=== PATIENT | male | born 1945 | race Caucasian/White ===

== ENCOUNTER → 2016-12-05 | Outpatient (CLI) | payer MEDICARE, MEDICAID ==
[~2016-12-05] MED LIST: ASPI81TA27 PO; Atorvastatin Calcium PO; CLOP75TA28 PO; ENA2.5T PO; METO50TA7 PO
[2016-12-05 11:13] VITALS: BP_SYST 122; BP_SYST 124; BP_DIAS 86; BP_DIAS 88
== END | disposition home or self-care (01) ==
LOC: CHF HDHVI 10:40
PROVIDERS: ATTEND Internal Medicine Cardiovascular Disease
DX: I50.43 Acute on chronic combined systolic (congestive) and diastolic (congestive) heart failure (principal); I25.738 Atherosclerosis of nonautologous biological coronary artery bypass graft(s) with other forms of angina pectoris; I63.8 Other cerebral infarction; Z98.61 Coronary angioplasty status
CPT/HCPCS: G0166

== ENCOUNTER → 2016-12-06 | Outpatient (CLI) | payer MEDICARE, MEDICAID ==
[2016-12-06 11:30] VITALS: BP_SYST 129; BP_SYST 141; BP_DIAS 89; BP_DIAS 94
== END | disposition home or self-care (01) ==
LOC: CHF HDHVI 10:57
PROVIDERS: ATTEND Internal Medicine Cardiovascular Disease
DX: I50.43 Acute on chronic combined systolic (congestive) and diastolic (congestive) heart failure (principal); I25.738 Atherosclerosis of nonautologous biological coronary artery bypass graft(s) with other forms of angina pectoris; I63.8 Other cerebral infarction; Z98.61 Coronary angioplasty status
CPT/HCPCS: G0166

== ENCOUNTER → 2017-02-06 | Outpatient (CLI) | payer MEDICARE, MEDICAID | END | disposition home or self-care (01) | LOC: Rad HDHVI 13:58 | PROVIDERS: ATTEND Internal Medicine Cardiovascular Disease | DX: M16.0 Bilateral primary osteoarthritis of hip (principal); N40.0 Benign prostatic hyperplasia without lower urinary tract symptoms | CPT/HCPCS: 72131; 73700 ==

== ENCOUNTER → 2017-04-20 | Outpatient (CLI) | payer MEDICARE, MEDICAID ==
[2017-04-20 16:18] LABS: Albumin 3.3 g/dL (3.4-5.0); BUN/Creatinine Ratio 16.6; Bilirubin, Total 0.2 mg/dL (0.2-1.0); Calcium 8.8 mg/dL (8.5-10.1); Potassium 4.1 mmol/L (3.5-5.1)
== END | disposition home or self-care (01) ==
LOC: LAB 10:05
PROVIDERS: ATTEND Internal Medicine Cardiovascular Disease
DX: I10 Essential (primary) hypertension (principal); E78.00 Pure hypercholesterolemia, unspecified
CPT/HCPCS: 36415; 80053; 80061

== ENCOUNTER → 2017-04-26 | Outpatient (CLI) | payer MEDICARE, MEDICAID ==
[2017-04-26 18:07] LABS: BUN/Creatinine Ratio 24.8; Calcium 8.9 mg/dL (8.5-10.1); Potassium 4.6 mmol/L (3.5-5.1)
== END | disposition home or self-care (01) ==
LOC: LAB 10:22
PROVIDERS: ATTEND Internal Medicine Cardiovascular Disease
DX: I10 Essential (primary) hypertension (principal); E11.9 Type 2 diabetes mellitus without complications; R97.20 Elevated prostate specific antigen [PSA]
CPT/HCPCS: 36415; 80048; 82043; 83036; 84153

== ENCOUNTER → 2017-07-10 | Outpatient (CLI) | payer MEDICARE, MEDICAID | END | disposition home or self-care (01) | LOC: Rad HDHVI 08:27 | PROVIDERS: ATTEND Internal Medicine Cardiovascular Disease | DX: I67.2 Cerebral atherosclerosis (principal); I63.9 Cerebral infarction, unspecified | CPT/HCPCS: 70450 ==

== ENCOUNTER 2017-07-12 13:16 | Emergency (ER) | payer MEDICARE, MEDICAID ==
[~2017-07-12] VITALS: Ht 177.8 cm; Wt 68.0 kg
[2017-07-12 13:36] VITALS: BP 133/96
[2017-07-12 20:45] LABS: Basophils # (auto) 0.1 uL; Basophils % (auto) 0.4 % (0.0-2.0); Eosinophils # (auto) 0 uL; Eosinophils % (auto) 0.2 % (0.0-7.0); Hematocrit 41.3 % (41.0-53.0); Lymphocytes # (auto) 0.8 uL; Lymphocytes % (auto) 5.8 % (10.0-50.0); Mean Corpuscular Hemoglobin 31.5 pg (28.0-32.0); Mean Corpuscular Hgb Conc. 33.8 g/dL (32.0-36.0); Mean Corpuscular Volume 93.1 fL (80.0-100.0); Mean Platelet Volume 7.6 fL (6.9-10.8); Monocytes # (auto) 0.9 uL; Monocytes % (auto) 6.6 % (0.0-12.0); Neutrophils # (auto) 12.1 uL; Platelet Count (auto) 433 10^3/uL (140-450); Red Cell Distribution Width 12.7 % (11.8-14.3)
[2017-07-12 21:02] LABS: Albumin 2.9 g/dL (3.4-5.0); BUN/Creatinine Ratio 12.1; Bilirubin, Total 0.6 mg/dL (0.2-1.0); Calcium 8.7 mg/dL (8.5-10.1); Potassium 4.5 mmol/L (3.5-5.1); Total Protein 7.9 g/dL (6.4-8.2)
== END 2017-07-12 22:10 ==
LOC: ER 13:16
DX: R53.1 Weakness (principal); I11.0 Hypertensive heart disease with heart failure; I50.9 Heart failure, unspecified; J44.9 Chronic obstructive pulmonary disease, unspecified; E78.5 Hyperlipidemia, unspecified; Z86.73 Personal history of transient ischemic attack (TIA), and cerebral infarction without residual deficits; F17.210 Nicotine dependence, cigarettes, uncomplicated; F12.10 Cannabis abuse, uncomplicated; F15.10 Other stimulant abuse, uncomplicated
CPT/HCPCS: 36415; 80053; 85025; 93005

== ENCOUNTER → 2017-07-25 | Outpatient (CLI) | payer MEDICARE, MEDICAID | END | disposition home or self-care (01) | LOC: Rad HDHVI 11:03 | PROVIDERS: ATTEND Internal Medicine Cardiovascular Disease | DX: R07.89 Other chest pain (principal); R06.02 Shortness of breath | CPT/HCPCS: 93306 ==

== ENCOUNTER → 2017-07-26 | Outpatient (CLI) | payer MEDICARE, MEDICAID | END | disposition home or self-care (01) | LOC: Rad HDHVI 11:58 | PROVIDERS: ATTEND Internal Medicine Cardiovascular Disease | DX: R07.89 Other chest pain (principal); R06.02 Shortness of breath; J44.9 Chronic obstructive pulmonary disease, unspecified | CPT/HCPCS: 93880 ==

== ENCOUNTER → 2017-08-17 | Outpatient (CLI) | payer MEDICARE, MEDICAID ==
[~2017-08-17] MED LIST changes: +IOHEXOL 350 MG/ML 100ML IJ ONE
[2017-08-17 09:15] VITALS: BP 143/86
[2017-08-17 09:40] VITALS: BP 149/112
== END | disposition home or self-care (01) ==
LOC: Rad HDHVI 09:04
PROVIDERS: ATTEND Internal Medicine Cardiovascular Disease
DX: I74.09 Other arterial embolism and thrombosis of abdominal aorta (principal); N40.0 Benign prostatic hyperplasia without lower urinary tract symptoms; K57.30 Diverticulosis of large intestine without perforation or abscess without bleeding; K42.9 Umbilical hernia without obstruction or gangrene
CPT/HCPCS: 75635; 82565; 96374; G0463; Q9967

== ENCOUNTER → 2017-09-01 | Outpatient (CLI) | payer MEDICARE, MEDICAID ==
[~2017-09-01] MED LIST changes: -IOHEXOL 350 MG/ML 100ML IJ ONE; +SODIUM CHLORIDE 0.9% 500 ML IV ONE
[2017-09-01 10:51] LABS: Basophils # (auto) 0.1 uL; Basophils % (auto) 0.8 % (0.0-2.0); Eosinophils # (auto) 0.4 uL; Eosinophils % (auto) 3.7 % (0.0-7.0); Hematocrit 42.7 % (41.0-53.0); Hemoglobin 14.2 g/dL (13.5-17.5); Lymphocytes # (auto) 1.5 uL; Lymphocytes % (auto) 14.7 % (10.0-50.0); Mean Corpuscular Hemoglobin 31.4 pg (28.0-32.0); Mean Corpuscular Hgb Conc. 33.3 g/dL (32.0-36.0); Mean Corpuscular Volume 94.4 fL (80.0-100.0); Mean Platelet Volume 7.9 fL (6.9-10.8); Monocytes # (auto) 0.6 uL; Monocytes % (auto) 5.7 % (0.0-12.0); Neutrophils # (auto) 7.5 uL; Neutrophils % (auto) 75.1 % (37.0-80.0); Nucleated Red Blood Cells % 0.1 %; Platelet Count (auto) 283 10^3/uL (140-450); Red Cell Distribution Width 13.9 % (11.8-14.3)
[2017-09-01 11:13] LABS: Albumin 3.2 g/dL (3.4-5.0); BUN/Creatinine Ratio 15.3; Bilirubin, Total 0.6 mg/dL (0.2-1.0); Calcium 8.5 mg/dL (8.5-10.1); Magnesium 2.1 mg/dL (1.6-2.6); Potassium 4.6 mmol/L (3.5-5.1); Total Protein 7.3 g/dL (6.4-8.2)
[2017-09-01 13:30] VITALS: BP 105/78
== END | disposition home or self-care (01) ==
LOC: CHF HDHVI 09:55
PROVIDERS: ATTEND Internal Medicine Cardiovascular Disease
DX: I70.0 Atherosclerosis of aorta (principal); R91.8 Other nonspecific abnormal finding of lung field; J98.11 Atelectasis; I10 Essential (primary) hypertension; D64.9 Anemia, unspecified; E11.9 Type 2 diabetes mellitus without complications; E83.42 Hypomagnesemia
CPT/HCPCS: 36415; 71020; 80053; 82962; 83036; 83735; 85025; G0463

== ENCOUNTER → 2017-09-20 | Outpatient (CLI) | payer MEDICARE, MEDICAID ==
[~2017-09-20] MED LIST changes: -SODIUM CHLORIDE 0.9% 500 ML IV ONE
== END | disposition home or self-care (01) ==
LOC: Rad HDHVI 09:29
PROVIDERS: ATTEND Internal Medicine Cardiovascular Disease
DX: J44.9 Chronic obstructive pulmonary disease, unspecified (principal)
CPT/HCPCS: 71020

== ENCOUNTER → 2017-11-27 | Outpatient (CLI) | payer MEDICARE ==
[~2017-11-27] MED LIST changes: +METOPROLOL TARTRATE 25 MG TAB ONE; +METOPROLOL TARTRATE 25 MG TAB PO ONE
[2017-11-27 09:15] VITALS: BP 173/104
[2017-11-27 10:00] VITALS: BP 138/111
[2017-11-27 12:43] LABS: Basophils # (auto) 0.1 uL; Basophils % (auto) 0.6 % (0.0-2.0); Eosinophils # (auto) 0.3 uL; Eosinophils % (auto) 3.3 % (0.0-7.0); Hematocrit 41.3 % (41.0-53.0); Hemoglobin 13.8 g/dL (13.5-17.5); Lymphocytes # (auto) 1.5 uL; Lymphocytes % (auto) 17.7 % (10.0-50.0); Mean Corpuscular Hemoglobin 31.4 pg (28.0-32.0); Mean Corpuscular Hgb Conc. 33.5 g/dL (32.0-36.0); Mean Corpuscular Volume 93.8 fL (80.0-100.0); Monocytes # (auto) 0.5 uL; Neutrophils # (auto) 6.1 uL; Neutrophils % (auto) 72.4 % (37.0-80.0); Nucleated Red Blood Cells % 0.2 %; Platelet Count (auto) 251 10^3/uL (140-450); White Blood Cell 8.5 10^3/uL (4.4-10.8)
[2017-11-27 12:50] LABS: BUN/Creatinine Ratio 11.4; Calcium 8.3 mg/dL (8.5-10.1); Potassium 4.3 mmol/L (3.5-5.1)
[2017-11-27 12:53] LABS: INR 0.9 (0.9-1.15); Partial Thromboplastin Time 25.2 sec (22.64-33.71); Prothrombin Time 9.8 sec (9.37-12.3)
== END | disposition home or self-care (01) ==
LOC: Rad HDHVI 09:08
PROVIDERS: ATTEND Internal Medicine Cardiovascular Disease
DX: Z01.818 Encounter for other preprocedural examination (principal); J98.11 Atelectasis; I70.0 Atherosclerosis of aorta; I10 Essential (primary) hypertension; D64.9 Anemia, unspecified; R79.1 Abnormal coagulation profile
CPT/HCPCS: 36415; 71046; 80048; 85025; 85610; 85730; 93005; G0463

== ENCOUNTER 2017-11-30 07:06 | Inpatient (IN) | payer MEDICAID, MEDICARE ==
[~2017-11-30] VITALS: Ht 170.2 cm; Wt 65.8 kg
[~2017-11-30 07:06] MED LIST changes: -METOPROLOL TARTRATE 25 MG TAB ONE; -METOPROLOL TARTRATE 25 MG TAB PO ONE
[2017-11-30] MEDS ORDERED: IOHEXOL 350 MG/ML 100ML IJ ONE ×2 (07:15→08:26)
[2017-11-30] MEDS ORDERED: LIDOCAINE 2%HCL (LOCAL ANESTH.) INJ 20ML MDV ONE (07:15)
[2017-11-30] MEDS ORDERED: ANGIOMAX 250 MG VIAL IV ONE (07:44)
[2017-11-30] MEDS ORDERED: MIDAZOLAM HCL 1MG/1ML-2 ML VIAL ONE (07:45)
[2017-11-30] MEDS ORDERED: SODIUM CHL 0.9% 50 ML ONE (07:45)
[2017-11-30] MEDS ORDERED: fentaNYL CITRATE 100 MCG/2 ML VL ONE (07:45)
[2017-11-30] MEDS ORDERED: ZOLPIDEM TARTRATE 5 MG TAB PO PRN (10:30)
[2017-11-30] MEDS ORDERED: ONDANSETRON HCL 4 MG/2 ML VIAL IV PRN (10:30)
[2017-11-30] MEDS ORDERED: HYDROcodone-ACET 5/325MG TAB PO PRN (10:30)
[2017-11-30] MEDS ORDERED: ACETAMINOPHEN 500 MG TAB PO PRN (10:30)
[2017-11-30] MEDS ORDERED: METOPROLOL SUCCINATE XL 50 MG TAB PO SCH (11:00)
[2017-11-30] MEDS ORDERED: CLOPIDOGREL BISULFATE 75 MG TAB PO ONE (11:00)
[2017-11-30] MEDS ORDERED: ENALAPRIL MALEATE 2.5 MG TAB PO ONE (11:00)
[2017-11-30] MEDS ORDERED: ASPirin-EC 81 mg tab PO ONE (11:00)
[2017-11-30] MEDS: SODIUM CHLOR 0.9% PF (SALINE LOCK) 10ML VIAL IV SCH ×2 (11:12→22:00)
[2017-11-30 13:00] VITALS: BP 131/85
[2017-11-30 17:00] VITALS: BP 141/92
[2017-11-30 22:00] VITALS: BP 102/71
[2017-11-30] MEDS ORDERED: ATORVASTATIN 20 MG TAB PO SCH (22:00)
[2017-11-30] MEDS ORDERED: ATORVASTATIN CALCIUM 20 MG PO SCH (22:00)
[2017-12-01 05:20] VITALS: BP 129/95
[2017-12-01] MEDS: SODIUM CHLOR 0.9% PF (SALINE LOCK) 10ML VIAL IV SCH ×2 (06:00→13:44)
[2017-12-01 08:20] VITALS: BP 104/77
[2017-12-01] MEDS ORDERED: METOPROLOL SUCCINATE XL 50 MG TAB PO SCH (10:00)
[2017-12-01] MEDS ORDERED: CLOPIDOGREL BISULFATE 75 MG TAB PO SCH (10:00)
[2017-12-01] MEDS ORDERED: ENALAPRIL MALEATE 2.5 MG TAB PO SCH (10:00)
[2017-12-01] MEDS ORDERED: ASPirin-EC 81 mg tab PO SCH (10:00)
[2017-12-01 11:40] VITALS: BP 151/88
[2017-12-01 14:34] VITALS: BP 106/70
== END 2017-12-01 15:50 | disposition home or self-care (01) | DRG 253 ==
LOC: CATH 07:06 → WEST WING 07:07
PROVIDERS: ADMIT Internal Medicine Cardiovascular Disease; ATTEND Internal Medicine Cardiovascular Disease
PROC: 047D34Z Dilation of Left Common Iliac Artery with Drug-eluting Intraluminal Device, Percutaneous Approach (ICD-10-PCS; principal; 2017-11-30)
PROC: B41D1ZZ Fluoroscopy of Aorta and Bilateral Lower Extremity Arteries using Low Osmolar Contrast (ICD-10-PCS; 2017-11-30)
DX: I70.211 Atherosclerosis of native arteries of extremities with intermittent claudication, right leg (principal); I70.92 Chronic total occlusion of artery of the extremities; I50.9 Heart failure, unspecified; J44.9 Chronic obstructive pulmonary disease, unspecified; I11.0 Hypertensive heart disease with heart failure; I70.201 Unspecified atherosclerosis of native arteries of extremities, right leg; E78.5 Hyperlipidemia, unspecified; Z72.0 Tobacco use; Z71.6 Tobacco abuse counseling; I25.2 Old myocardial infarction; Z86.73 Personal history of transient ischemic attack (TIA), and cerebral infarction without residual deficits
CPT/HCPCS: 36415; 37221; 71046; 75716; 80048; 85025; 85610; 85730; 93005; 99152; C1769; G0463; J2250

== ENCOUNTER → 2018-02-23 | Outpatient (CLI) | payer MEDICARE ==
[~2018-02-23] VITALS: Ht 30.5 cm; Wt 64.0 kg
[~2018-02-23] MED LIST changes: +SODIUM CHLORIDE 0.9% 500 ML IV ONE; +cefTRIAXone 1GM/10ml IVPUSH 10 ML IV ONE
[2018-02-23 12:30] VITALS: BP 96/66
[2018-02-23 13:26] VITALS: BP 104/77
[2018-02-23 13:50] VITALS: BP 98/71
[2018-02-23 16:06] LABS: Anion Gap 8 (5-15); BUN/Creatinine Ratio 20.6; Blood Urea Nitrogen 34 mg/dL (7-18); Calcium 8.9 mg/dL (8.5-10.1); Carbon Dioxide 25 mmol/L (21-32); Chloride 107 mmol/L (98-107); GFR African American 53 mL/min; GFR Non-African American 44 mL/min; Glucose 145 mg/dL (74-106); Sodium 140 mmol/L (136-145)
== END | disposition home or self-care (01) ==
LOC: CHF HDHVI 12:42
PROVIDERS: ATTEND Internal Medicine Cardiovascular Disease
DX: I11.0 Hypertensive heart disease with heart failure (principal); I50.23 Acute on chronic systolic (congestive) heart failure; I20.9 Angina pectoris, unspecified; E86.0 Dehydration; R07.9 Chest pain, unspecified; E78.5 Hyperlipidemia, unspecified; J44.9 Chronic obstructive pulmonary disease, unspecified
CPT/HCPCS: 36415; 80048; 83880; 84484; 96361; 96374; G0463; J7040; 96360; 96375

== ENCOUNTER → 2018-03-12 | Outpatient (CLI) | payer MEDICARE ==
[~2018-03-12] MED LIST changes: -SODIUM CHLORIDE 0.9% 500 ML IV ONE; -cefTRIAXone 1GM/10ml IVPUSH 10 ML IV ONE
== END | disposition home or self-care (01) ==
LOC: Rad HDHVI 15:23
PROVIDERS: ATTEND Internal Medicine Cardiovascular Disease
DX: R06.02 Shortness of breath (principal); E78.5 Hyperlipidemia, unspecified; I11.0 Hypertensive heart disease with heart failure; I50.9 Heart failure, unspecified; J44.9 Chronic obstructive pulmonary disease, unspecified
CPT/HCPCS: 71046

== ENCOUNTER → 2018-05-16 | Outpatient (CLI) | payer MEDICARE ==
[~2018-05-16] MED LIST changes: +MET5XLT PO; -METO50TA7 PO
[2018-05-16 11:20] VITALS: BP 100/68
[2018-05-16 12:00] VITALS: BP 102/64
== END | disposition home or self-care (01) ==
LOC: CHF HDHVI 10:59
PROVIDERS: ATTEND Internal Medicine
DX: I10 Essential (primary) hypertension (principal); R06.02 Shortness of breath
CPT/HCPCS: 94618; G0463

== ENCOUNTER 2018-05-17 14:37 | Emergency (ER) | payer MEDICARE ==
[~2018-05-17] VITALS: Ht 172.7 cm; Wt 62.1 kg
[2018-05-17] MEDS ORDERED: SODIUM CHLORIDE 0.9% 1,000 ML IV ONE (14:43)
[2018-05-17] MEDS ORDERED: cefTRIAXone 1GM/10ml IVPUSH 10 ML IV ONE (15:00)
[2018-05-17 15:37] LABS: Basophils # (auto) 0.1 uL; Basophils % (auto) 0.3 % (0.0-2.0); Eosinophils # (auto) 0 uL; Hematocrit 42.2 % (41.0-53.0); Hemoglobin 13.9 g/dL (13.5-17.5); Lymphocytes # (auto) 0.5 uL; Lymphocytes % (auto) 2.8 % (10.0-50.0); Mean Corpuscular Hemoglobin 30.8 pg (28.0-32.0); Mean Corpuscular Volume 93.3 fL (80.0-100.0); Monocytes # (auto) 0.6 uL; Monocytes % (auto) 3.6 % (0.0-12.0); Neutrophils # (auto) 16.7 uL; Neutrophils % (auto) 93.3 % (37.0-80.0); Platelet Count (auto) 201 10^3/uL (140-450); Red Blood Cells 4.52 10^6/uL (4.5-5.90); Red Cell Distribution Width 13.1 % (11.8-14.3); White Blood Cell 17.9 10^3/uL (4.4-10.8)
[2018-05-17 15:50] LABS: Partial Thromboplastin Time 24.6 sec (23.78-33.04); Prothrombin Time 10.7 sec (9.27-12.13)
[2018-05-17 15:59] LABS: Albumin 2.2 g/dL (3.4-5.0); BUN/Creatinine Ratio 13.7; Calcium 7.3 mg/dL (8.5-10.1); Potassium 4.2 mmol/L (3.5-5.1); Total Protein 5.7 g/dL (6.4-8.2)
[2018-05-17] MEDS ORDERED: AZITHROMYCIN 500MG/ 250ML 250 ML IV ONE (16:15)
[2018-05-17 17:18] VITALS: BP 156/143
[2018-05-17 17:19] LABS: Urine Bacteria NONE SEEN /hpf (None Seen); Urine Blood Negative /uL (Negative); Urine Specific Gravity 1.027 (1.001-1.035); Urine WBC 2 /hpf (0 - 3)
== END 2018-05-17 18:23 | disposition left against medical advice (07) ==
LOC: EDBD 14:37 → ER 14:37
DX: J18.9 Pneumonia, unspecified organism (principal); I11.0 Hypertensive heart disease with heart failure; I50.9 Heart failure, unspecified; I25.10 Atherosclerotic heart disease of native coronary artery without angina pectoris; E78.00 Pure hypercholesterolemia, unspecified; J44.9 Chronic obstructive pulmonary disease, unspecified; F17.210 Nicotine dependence, cigarettes, uncomplicated; F12.10 Cannabis abuse, uncomplicated
CPT/HCPCS: 36415; 71045; 80053; 81001; 83605; 83880; 84484; 85025; 85610; 85730; 87040; 93005; 96365; 96375; 99285; J0456; J0696; J7030

== ENCOUNTER → 2018-11-02 | Outpatient (CLI) | payer MEDICARE ==
[~2018-11-02] MED LIST changes: +IOHEXOL 350 MG/ML 100ML IJ ONE; +SODIUM CHLORIDE 0.9% 500 ML IV ONE
[2018-11-02 11:20] VITALS: BP 147/94
--- NOTE | 2018-11-02 11:20 | NUR ---
IV insertion IV access obtained, via clean sterile technique by inserting 22 gauge catheter at RFA after 1 attempt(s). IV secured properly. No trauma to site. Patient tolerated procedure well.
--- NOTE | 2018-11-02 12:38 | NUR ---
IV removal IV DC'd with sterile technique, catheter fully intact. Pressure dressing applied to site. Patient tolerated procedure well.
[2018-11-02 12:40] VITALS: BP 140/80
--- NOTE | 2018-11-02 12:40 | NUR ---
[facility] Discharge Instructions See e-MAR for any mediations given with this visit. Patient education given on disease process. Patient verbalized understanding. Previous labs reviewed. Patient discharged in stable condition with after care instructions and follow up appointment. NOTE NS [id number] ADMIN BY THANIA DYSON
== END | disposition home or self-care (01) ==
LOC: Rad HDHVI 10:59
PROVIDERS: ATTEND Internal Medicine Cardiovascular Disease
DX: R07.9 Chest pain, unspecified (principal); I25.10 Atherosclerotic heart disease of native coronary artery without angina pectoris; J44.9 Chronic obstructive pulmonary disease, unspecified; E78.00 Pure hypercholesterolemia, unspecified; R42 Dizziness and giddiness; E78.5 Hyperlipidemia, unspecified; E86.0 Dehydration; I25.2 Old myocardial infarction; E11.51 Type 2 diabetes mellitus with diabetic peripheral angiopathy without gangrene; M81.0 Age-related osteoporosis without current pathological fracture; E11.22 Type 2 diabetes mellitus with diabetic chronic kidney disease; I13.0 Hypertensive heart and chronic kidney disease with heart failure and stage 1 through stage 4 chronic kidney disease, or unspecified chronic kidney disease; N18.3 Chronic kidney disease, stage 3 (moderate); I50.42 Chronic combined systolic (congestive) and diastolic (congestive) heart failure; F12.11 Cannabis abuse, in remission; I70.92 Chronic total occlusion of artery of the extremities; K57.90 Diverticulosis of intestine, part unspecified, without perforation or abscess without bleeding; Z95.1 Presence of aortocoronary bypass graft; Z87.891 Personal history of nicotine dependence; Z79.899 Other long term (current) drug therapy; Z79.82 Long term (current) use of aspirin; Z95.0 Presence of cardiac pacemaker; Z86.73 Personal history of transient ischemic attack (TIA), and cerebral infarction without residual deficits; Z79.02 Long term (current) use of antithrombotics/antiplatelets
CPT/HCPCS: 71260; 82565; 96360; G0463; J7040; Q9967

== ENCOUNTER → 2019-03-11 | Outpatient (CLI) | payer MEDICARE ==
[~2019-03-11] MED LIST changes: -IOHEXOL 350 MG/ML 100ML IJ ONE; -SODIUM CHLORIDE 0.9% 500 ML IV ONE
== END | disposition home or self-care (01) ==
LOC: LAB 12:17
PROVIDERS: ATTEND Internal Medicine Cardiovascular Disease
DX: R94.4 Abnormal results of kidney function studies (principal); Z79.899 Other long term (current) drug therapy
CPT/HCPCS: 36415; 82565; 82962

== ENCOUNTER → 2019-03-15 | Outpatient (CLI) | payer MEDICARE ==
[~2019-03-15] MED LIST changes: +READI-CAT 2 (BARIUM SULF)(VANILLA SMOOTHIE) 450ML ONE; +SODIUM CHLORIDE 0.9% 500 ML IV ONE
[2019-03-15 10:00] VITALS: BP 79/44
--- NOTE | 2019-03-15 10:05 | NUR ---
IV insertion IV access obtained, via clean sterile technique by inserting 22 gauge catheter at RAC after 1 attempt(s). IV secured properly. No trauma to site. Patient tolerated procedure well.
--- NOTE | 2019-03-15 12:00 | NUR ---
IV removal IV DC'd with sterile technique, catheter fully intact. Pressure dressing applied to site. Patient tolerated procedure well.
[2019-03-15 12:05] VITALS: BP 126/73
--- NOTE | 2019-03-15 12:05 | NUR ---
[facility] Discharge Instructions See e-MAR for any mediations given with this visit. Patient education given on disease process. Patient verbalized understanding. Previous labs reviewed. Patient discharged in stable condition with after care instructions and follow up appointment. NOTE NS [id number], [id number] ADMIN BY THANIA DYSON
== END | disposition home or self-care (01) ==
LOC: Rad HDHVI 09:42
PROVIDERS: ATTEND Internal Medicine Cardiovascular Disease
DX: J98.11 Atelectasis (principal); I70.0 Atherosclerosis of aorta; R91.8 Other nonspecific abnormal finding of lung field; K57.30 Diverticulosis of large intestine without perforation or abscess without bleeding; N32.89 Other specified disorders of bladder; R63.4 Abnormal weight loss; R94.4 Abnormal results of kidney function studies; Z79.899 Other long term (current) drug therapy
CPT/HCPCS: 36415; 71250; 74176; 82565; G0463; J7040; 96360

== ENCOUNTER 2019-06-23 19:15 | Inpatient (IN) | payer MEDICARE, OTHER ==
[~2019-06-23] VITALS: Ht 170.2 cm; Wt 60.4 kg
[~2019-06-23 19:15] MED LIST changes: +ASPI-404 PO; -ASPI81TA27 PO; -ENA2.5T PO; +ENAL2.5T2 PO; -MET5XLT PO; +METO-6 PO; -READI-CAT 2 (BARIUM SULF)(VANILLA SMOOTHIE) 450ML ONE; -SODIUM CHLORIDE 0.9% 500 ML IV ONE
[2019-06-23] MEDS ORDERED: SODIUM CHLORIDE 0.9% 1,000 ML IV ONE (20:30)
[2019-06-23 20:36] LABS: Basophils # (auto) 0.1 uL; Basophils % (auto) 0.8 % (0.0-2.0); Eosinophils # (auto) 0.2 uL; Eosinophils % (auto) 1.8 % (0.0-7.0); Hematocrit 48.2 % (41.0-53.0); Hemoglobin 16.1 g/dL (13.5-17.5); Lymphocytes % (auto) 11.7 % (10.0-50.0); Mean Corpuscular Hgb Conc. 33.4 g/dL (32.0-36.0); Mean Corpuscular Volume 95.7 fL (80.0-100.0); Monocytes # (auto) 0.6 uL; Monocytes % (auto) 6.7 % (0.0-12.0); Neutrophils # (auto) 6.7 uL; Platelet Count (auto) 276 10^3/uL (140-450); Red Blood Cells 5.04 10^6/uL (4.5-5.90); Red Cell Distribution Width 12.5 % (11.8-14.3); White Blood Cell 8.5 10^3/uL (4.4-10.8)
[2019-06-23] MEDS ORDERED: IPRATROPIUM BROM 0.5 MG/2.5ML INH SOL NEB ONE (20:45)
[2019-06-23] MEDS ORDERED: ALBUTEROL SULF 2.5 MG/0.5ML(0.5%) NEB SOLN NEB ONE (20:45)
[2019-06-23] MEDS ORDERED: methylPREDNISolone SOD SUCC 125 MG/2 ML VL IV ONE (20:45)
[2019-06-23 20:50] LABS: INR 0.93 (0.9-1.15); Partial Thromboplastin Time 22.2 sec (23.64-32.05)
[2019-06-23 20:52] LABS: Albumin 3.7 g/dL (3.4-5.0); Anion Gap 7 (5-15); Blood Urea Nitrogen 27 mg/dL (7-18); Calcium 8.9 mg/dL (8.5-10.1); Carbon Dioxide 31 mmol/L (21-32); Chloride 101 mmol/L (98-107); Glucose 331 mg/dL (74-106); Potassium 3.9 mmol/L (3.5-5.1); Sodium 139 mmol/L (136-145)
[2019-06-23 20:58] LABS: Alanine Aminotransferase 28 U/L (16-61); Alkaline Phosphatase 114 U/L (45-117); Aspartate Aminotransferase 16 U/L (15-37); BUN/Creatinine Ratio 14.1; Bilirubin, Total 0.5 mg/dL (0.2-1.0); GFR African American 45 mL/min; GFR Non-African American 37 mL/min; Total Protein 7.1 g/dL (6.4-8.2)
[2019-06-23] MEDS ORDERED: MORPHINE SULF INJ 2 MG/ML SYRINGE 1ML IV PRN (23:30)
[2019-06-23] MEDS ORDERED: InsuLIN REG 1unit/0.01ml Soln (100units/ml) SC ONE (23:30)
[2019-06-23] MEDS ORDERED: DEXTROSE (50%) 50ML SYRG IV PRN (23:30)
[2019-06-23] MEDS ORDERED: NITROGLYCERIN 0.4 MG SL TAB SL PRN (23:30)
[2019-06-24] MEDS: InsuLIN REG 1unit/0.01ml Soln (100units/ml) SC SCH ×7 (00:03→23:35)
[2019-06-24] MEDS: ACCU-CHEK COMFORT CURVE STRIP VI SCH ×7 (00:03→23:34)
[2019-06-24] MEDS: IPRATROPIUM BROM 0.5 MG/2.5ML INH SOL NEB SCH ×3 (00:24→19:02)
--- NOTE | 2019-06-24 00:40 | NUR ---
Telemetry admit from ER DEVONTE ODOM Calvin admitted to Telemetry unit after SBAR received. Patient oriented to Shanon eller RN, unit, room, bed, and unit policies regarding patient care and visiting hours. Patient now on continuous telemetry monitoring, tele box # 76 and telemetry reading on arrival to unit is SR 95,first degree heart block. Patient placed on bedside oxygen, weighed by bed scale and encouraged to call if they need something. All questions and concerns addressed, patient verbalized understanding. Note: Came pert stretcher awake alert oriented x 4, not in respiratory distress,placed in the bed comfortably, vital signs checked.
[2019-06-24 00:49] VITALS: BP 146/90
--- NOTE | 2019-06-24 00:59 | NUR ---
Went down to smoke, explained that signing the AMA to smoke is hospital has no liability if something happened and he downstair while he smoking and said yes.Offered Nicotine patched, patient just ignore the R.n.
[2019-06-24 02:33] LABS: Alcohol, Urine < 3.0 mg/dL (0-5); Amphetamine Screen, Urine POSITIVE (NEGATIVE); Barbiturate Scree,Urine NEGATIVE (NEGATIVE); Benzodiazephine Screen, Urine NEGATIVE (NEGATIVE); Cannabinoid Screen, Urine NEGATIVE (NEGATIVE); Cocaine Screen, Urine NEGATIVE (NEGATIVE); Phencyclidine Screen, Urine NEGATIVE (NEGATIVE)
[2019-06-24 02:40] LABS: Opiate Scree,Urine NEGATIVE (NEGATIVE)
[2019-06-24 04:30] VITALS: BP 121/85
--- NOTE | 2019-06-24 07:20 | NUR ---
Open Shift Note Received report on patient, awake and sitting up in bed. Patient shows no signs of distress at this time. Patient states chronic neck pain. Discussed pain management with patient along with POC. Educated patient importance of smoking cessation, patient states "What difference will it make now?". Reinforcement needed. Bed in lowest locked position, side rails up x2 and call light within reach. Will continue to monitor.
--- NOTE | 2019-06-24 07:36 | NUR ---
Report given to Esa Berry, patient need pain med, to tell Neeta
[2019-06-24 09:08] VITALS: BP 125/86
[2019-06-24] MEDS: METOPROLOL TARTRATE 25 MG TAB PO SCH (10:13)
[2019-06-24] MEDS: ATORVASTATIN 20 MG TAB PO SCH (10:14)
[2019-06-24] MEDS: ASPirin 81 mg TAB PO SCH (10:14)
[2019-06-24] MEDS: MONTELUKAST SODIUM 10 MG TAB PO SCH (10:14)
[2019-06-24] MEDS: CLOPIDOGREL BISULFATE 75 MG TAB PO SCH (10:15)
[2019-06-24 13:26] VITALS: BP 151/109
[2019-06-24] MEDS ORDERED: FUROSEMIDE 40 MG/4 ML VIAL IV ONE (14:00)
[2019-06-24] MEDS ORDERED: POTASSIUM CHL 20 Meq TABLET PO ONE (14:00)
[2019-06-24 16:53] VITALS: BP 117/89
--- NOTE | 2019-06-24 18:53 | NUR ---
Closing Note Patient sitting up in bed, shows no signs of distress at this time. Bed in lowest locked position, side rails up x2 and call light within reach.
--- NOTE | 2019-06-24 20:00 | NUR ---
Opening Shift Note Assumed care of patient, awake and alert. No S/S of distress/SOB or pain. Instructed on POC and to call for assist PRN, will continue to monitor for changes Q1hr and PRN.
[2019-06-24] MEDS: HYDROcodone-ACET 10/325MG TAB PO PRN (21:31)
[2019-06-24] MEDS: INSULIN LANTUS (GLARGINE) 1 /0.01ml (100units/ml) SC SCH (21:47)
[2019-06-24 21:57] VITALS: BP 93/75
--- NOTE | 2019-06-25 | NUR ---
Respiratory note: PT REFUSED SCHEDULED MED NEB TX STATING HE FELT OKAY AND WANTED TO SLEEP. NO SIGNS OF ANY RESPIRATORY DISTRESS NOTED. WILL CONTINUE TO MONITOR PT.
--- NOTE | 2019-06-25 00:40 | NUR ---
RT AT BEDSIDE FOR SCHEDULED BREATHING TREATMENT.
[2019-06-25] MEDS: ACCU-CHEK COMFORT CURVE STRIP VI SCH ×5 (03:42→20:02)
[2019-06-25] MEDS: InsuLIN REG 1unit/0.01ml Soln (100units/ml) SC SCH ×5 (03:42→20:02)
[2019-06-25] MEDS: HYDROcodone-ACET 10/325MG TAB PO PRN (04:08)
[2019-06-25 05:00] VITALS: BP 95/78
--- NOTE | 2019-06-25 07:09 | NUR ---
Report given to Esa Berry ,patient is resting no distress.
[2019-06-25] MEDS: IPRATROPIUM BROM 0.5 MG/2.5ML INH SOL NEB SCH ×4 (07:23→19:15)
--- NOTE | 2019-06-25 08:41 | NUR ---
Opening Note Received report on the patient. Awake and lying in bed, but he was inquisitive in regards to plan of care and nursing actions. Patient shows no signs of distress at this time. Discussed plan of care with the patient and answered all questions. Bed is in the lowest position, side rails up X2, and call light is within reach. Will continue to monitor.
[2019-06-25 09:27] VITALS: BP 104/70
[2019-06-25] MEDS: MONTELUKAST SODIUM 10 MG TAB PO SCH (09:49)
[2019-06-25] MEDS: ASPirin 81 mg TAB PO SCH (09:49)
[2019-06-25] MEDS: CLOPIDOGREL BISULFATE 75 MG TAB PO SCH (09:49)
[2019-06-25] MEDS: ATORVASTATIN 20 MG TAB PO SCH (09:49)
[2019-06-25] MEDS: METOPROLOL TARTRATE 25 MG TAB PO SCH (09:50)
--- NOTE | 2019-06-25 09:53 | NUR ---
NC Refusal Patient refuses to wear NC ordered with 2L O2. O2 sat is 93% and is not under distress at this time.
--- NOTE | 2019-06-25 12:42 | NUR ---
Hypoglycemic Episode Patient was found sitting up in bed slumped over. Patient was "hot", sweaty, and disoriented. VS were normal. Blood glucose was taken and was 74. Patient was given 4 boxes of orange juice and 1 package of melissa crackers. Blood glucose was retaken after 30 minutes and was 97. Patient is now alert and oriented, sitting in bed eating lunch. Will continue to monitor.
[2019-06-25 13:00] VITALS: BP 140/109
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
[2019-06-25 17:19] VITALS: BP 113/76
--- NOTE | 2019-06-25 19:05 | NUR ---
OPENING NOTE- NOC SHIFT PATIENT IS ALERT AND ORIENTED X4. PATIENT IS IN BED WEARING HIS PERSONAL CLOTHES. BED IS LOCKED IN LOWEST POSITION, BED RAILS UP X2 AND HEAD OF BED IS UP >30 DEGREES FOR SAFETY PRECAUTIONS. DISCUSSED POC WITH PATIENT AND INSTRUCTED PATIENT TO CALL PRN; PATIENT VERBALIZED UNDERSTANDING. WILL CONTINUE T0 MONITOR Q1H AND PRN. PATIENT REFUSED GOWN THAT WAS OFFERED; GOWN LEFT AT BEDSIDE.
--- NOTE | 2019-06-25 19:35 | NUR ---
PATIENT OFF FLOOR TO SMOKE PATIENT HAS SIGNED AMA IN HARD CHART. EDUCATED PATIENT REGARDING HARM RISKS OF SMOKING; PATIENT STATED "I'M 73 YEARS OLD I DON'T CARE TO QUIT NOW." PATIENT IS AWARE OF HOSPITAL AMA SMOKE POLICY.
--- NOTE | 2019-06-25 20:00 | NUR ---
PATIENT RETURNED TO ROOM FROM [place] PATIENT STATES THAT HE SMOKES ABOUT FIVE CIGARETTES A DAY.
[2019-06-25] MEDS: INSULIN LANTUS (GLARGINE) 1 /0.01ml (100units/ml) SC SCH (21:37)
--- NOTE | 2019-06-25 21:38 | NUR ---
PATIENT REFUSED LANTUS STATES THAT HE THINKS HE WILL HAVE ENOUGH WITH THE REGULAR INSULIN PREVIOUSLY ADMINISTERED. PATIENT STATES THAT HE HAD A HYPOGLYCEMIC EPISODE AND THAT IT MADE HIM FEEL "TERRIBLY WEAK."
[2019-06-25 22:00] VITALS: BP 96/68
--- NOTE | 2019-06-25 22:08 | NUR ---
BLOOD PRESSURE 155/89 PATIENT REPORTS HEADACHE 05/11 STATES THAT HE TAKES BENAZEPRIL AT HOME . BID BUT DOES NOT KNOW THE DOSAGE. Addendum: 06/25/19 at 2214 by Leona Bethea RN PLEASE DISREGARD THIS NOTE, INTENDED FOR A DIFFERENT PATIENT.
[2019-06-26] MEDS: ACCU-CHEK COMFORT CURVE STRIP VI SCH ×6 (00:05→20:44)
--- NOTE | 2019-06-26 00:40 | NUR ---
RT AT BEDSIDE FOR SCHEDULED BREATHING TREATMENT.
[2019-06-26] MEDS: IPRATROPIUM BROM 0.5 MG/2.5ML INH SOL NEB SCH ×5 (00:45→23:32)
[2019-06-26] MEDS: InsuLIN REG 1unit/0.01ml Soln (100units/ml) SC SCH ×6 (04:00→22:00)
[2019-06-26 05:00] VITALS: BP 98/68
--- NOTE | 2019-06-26 07:37 | NUR ---
ENDORSED PATIENT CARE TO DAY SHIFT NURSE KARIS LATHAM. PATIENT IS ALERT AND ORIENTED. PATIENT IS SITTING AT EDGE OF BED. PATIENT REPORTS PAIN IN HIS LUNGS WHEN COUGHING.
--- NOTE | 2019-06-26 07:38 | NUR ---
Opening Shift Note Assumed care of patient, asleep on bed. No S/S of distress/SOB or pain. Call light within reach, 2 side rails up and bed in lowest position, will continue to monitor for changes Q1hr and PRN.
[2019-06-26 09:00] VITALS: BP 113/79
[2019-06-26] MEDS: ATORVASTATIN 20 MG TAB PO SCH (09:28)
[2019-06-26] MEDS: CLOPIDOGREL BISULFATE 75 MG TAB PO SCH (09:28)
[2019-06-26] MEDS: ASPirin 81 mg TAB PO SCH (09:28)
[2019-06-26] MEDS: MONTELUKAST SODIUM 10 MG TAB PO SCH (09:28)
[2019-06-26] MEDS: METOPROLOL TARTRATE 25 MG TAB PO SCH (09:29)
[2019-06-26 13:00] VITALS: BP 101/74
--- NOTE | 2019-06-26 14:19 | NUR ---
NUTRITION ASSESSMENT NOTES Please refer to link notes of nutrition screen form filed under the intervention section of the plan of care for further details. Est. Needs: 1850 kcal to 2200 kcal (30-35 kcal/kgBW), 62 gms to 75 gms pro (1.0-1.2 gms/kgBW). Will continue to monitor pertinent labs and reassess nutrient need prn Thank you. Addendum: 06/26/19 at [address] Amended: Links added.
[2019-06-26 16:58] VITALS: BP 117/82
--- NOTE | 2019-06-26 17:29 | NUR ---
Dr. Powers at bedside he ordered Rocephin 1 gram IVPB now and daily, flomax 0.4mg po BID, and change accu check to [facility].
[2019-06-26] MEDS ORDERED: cefTRIAXone 1GM/50ML D5W 50 ML IV ONE (17:30)
--- NOTE | 2019-06-26 18:51 | NUR ---
Respiratory note: FOUND PT ON ROOM AIR, SPO2 88%. PT PLACED ON 3L NC POST MED NEB TX. WILL CONTINUE TO MONITOR.
[2019-06-26 22:00] VITALS: BP 112/77
[2019-06-26] MEDS: TAMSULOSIN HYDROCHLORIDE 0.4 MG CAP PO SCH (22:00)
[2019-06-26] MEDS: INSULIN LANTUS (GLARGINE) 1 /0.01ml (100units/ml) SC SCH (22:27)
[2019-06-27 00:46] VITALS: BP 117/82
[2019-06-27 05:46] LABS: Potassium 4.1 mmol/L (3.5-5.1)
[2019-06-27] MEDS: InsuLIN REG 1unit/0.01ml Soln (100units/ml) SC SCH ×4 (05:47→21:49)
[2019-06-27] MEDS: ACCU-CHEK COMFORT CURVE STRIP VI SCH ×4 (05:47→21:45)
[2019-06-27 05:51] LABS: Albumin 2.9 g/dL (3.4-5.0); BUN/Creatinine Ratio 20.3; Calcium 8.4 mg/dL (8.5-10.1)
[2019-06-27 05:53] LABS: Bilirubin, Total 0.2 mg/dL (0.2-1.0); Total Protein 5.8 g/dL (6.4-8.2)
[2019-06-27] MEDS: IPRATROPIUM BROM 0.5 MG/2.5ML INH SOL NEB SCH ×3 (06:41→19:00)
--- NOTE | 2019-06-27 07:30 | NUR ---
Opening Shift Note Assumed care of patient, awake and alert. No S/S of distress/SOB. PT denies having any pain at this time. Bed in lowest and locked position with side rails up x2 and call light in reach. Instructed on POC and to call for assist PRN, will continue to monitor for changes Q1hr and PRN.
[2019-06-27 09:00] VITALS: BP 140/76
[2019-06-27] MEDS: cefTRIAXone 1GM/50ML D5W 50 ML IV SCH (09:16)
[2019-06-27] MEDS: TAMSULOSIN HYDROCHLORIDE 0.4 MG CAP PO SCH ×2 (10:09→21:45)
[2019-06-27] MEDS: ASPirin 81 mg TAB PO SCH (10:09)
[2019-06-27] MEDS: ATORVASTATIN 20 MG TAB PO SCH (10:10)
[2019-06-27] MEDS: METOPROLOL TARTRATE 25 MG TAB PO SCH (10:11)
[2019-06-27] MEDS: CLOPIDOGREL BISULFATE 75 MG TAB PO SCH (10:12)
[2019-06-27] MEDS: MONTELUKAST SODIUM 10 MG TAB PO SCH (10:12)
[2019-06-27 13:00] VITALS: BP 101/64
[2019-06-27 17:00] VITALS: BP 95/67
--- NOTE | 2019-06-27 18:25 | NUR ---
PT C/O SOB. PT VITALS STABLE WITH BP OF 104/74, HR 120 AND OXYGEN SATURATION OF 94%. PT ON 2L OXYGEN. WILL PAGE RT FOR PT TREATMENT.
--- NOTE | 2019-06-27 18:30 | NUR ---
PAGED RESPIRATORY PER PT REQUEST FOR TREATMENT.
--- NOTE | 2019-06-27 19:00 | NUR ---
PAGED RESPIRATORY PER PT REQUEST FOR TREATMENT.
[2019-06-27] MEDS: INSULIN LANTUS (GLARGINE) 1 /0.01ml (100units/ml) SC SCH (21:50)
[2019-06-27] MEDS: HYDROcodone-ACET 10/325MG TAB PO PRN (21:53)
[2019-06-27 22:00] VITALS: BP 116/79
[2019-06-28] MEDS: IPRATROPIUM BROM 0.5 MG/2.5ML INH SOL NEB SCH ×5 (01:05→23:52)
--- NOTE | 2019-06-28 01:16 | NUR ---
SEDIMENTATIONIST STATES PATIENT HR ABOVE 120S. CHECKED PATIENT IS STANDING BEDSIDE TO URINATE AND IS OFF OXYGEN. INFORMED PATIENT TO KEEP OXYGEN NASAL CANNULA ON AND WILL CHECK PLACEMENT OF LEADS. PATIENT REFUSES TO HAVE THEM CHANGED OR REPOSITIONED. PATIENT STATES HE WANTS TO GO DOWN AND SMOKE, PATIENT OBTAINED HIS PACKET OF CIGARRETES FROM HIS JACKET AND PLACED IN HIS POCKET. DEVONTE ODOM states they want to leave the floor Against Medical Advice (AMA) to go outside and smoke. Patient encouraged to stay on floor and not smoke. Dr KRISHNAMURTHY notified of patient's wishes. Patient advised of the risks and benefits of leaving AMA. Patient verbalized understanding and signed required AMA form. AWAITING PATIENT RETURN TO FLOOR, SEDIMENTATIONIST NOTIFIED. Addendum: 06/28/19 at 0132 by DOMINIQUE KELLY RN RN PATIENT RETURNED TO FLOOR VIA WHEELCHAIR ACCOMPANIED BY ANODE CREW SUPERVISOR, FOUND PATIENT NEAR THE FRONT ENTRANCE SMOKING. INFORMED ANODE CREW SUPERVISOR PATIENT HAS AMA TO SMOKE. PATIENT HAS SOB PLACED PATIENT BACK ON OXYGEN ASSISTED BACK TO BED. PATIENT STATES HE WANTS CLEMENT[place] CRACKERS. PATIENT ALERT AND ORIENTED. INFORMED PATIENT HR IS ABOVE 120 AND NEEDS TO STAY ON OXYGEN.
[2019-06-28 03:43] VITALS: BP 104/74
[2019-06-28] MEDS: METOPROLOL TARTRATE 25 MG TAB PO SCH (03:43)
--- NOTE | 2019-06-28 03:51 | NUR ---
TACHYCARDIA 120-150 PATIENT RESTING IN BED ON O2 3LNC. PATIENT EATING CLEMENTINA CRACKERS. CHECK PLACEMENT OF LEADS AND REPOSITIONED THEN WITH NEW ONES. PATIENT WENT BACK DOWN TO 100-110S. CERTIFIED PATHOLOGY ASSISTANT CALLED AGAIN STATED PATIENT HR 150. CHECK PATIENT IS STILL IN BED RESTING. PT CURRENT VITALS T 98 HR 128 RR 20 BP104/74 O2SAT 95% ON 3LNC. PATIENT HAS METOPROLOL 12.5MG PO DAILY WHICH I GAVE EARLY. LEFT MESSAGE FOR DR KRISHNAMURTHY FOR FURTHER ORDERS. AWAITING CALL BACK.
[2019-06-28] MEDS: ACCU-CHEK COMFORT CURVE STRIP VI SCH ×4 (05:45→21:39)
[2019-06-28] MEDS: InsuLIN REG 1unit/0.01ml Soln (100units/ml) SC SCH ×4 (05:45→21:43)
--- NOTE | 2019-06-28 06:26 | NUR ---
PT REFUSED AM BS CHECK.
[2019-06-28 09:00] VITALS: BP 93/70
[2019-06-28] MEDS: ASPirin 81 mg TAB PO SCH (10:04)
[2019-06-28] MEDS: TAMSULOSIN HYDROCHLORIDE 0.4 MG CAP PO SCH ×2 (10:04→21:38)
[2019-06-28] MEDS: CLOPIDOGREL BISULFATE 75 MG TAB PO SCH (10:04)
[2019-06-28] MEDS: ATORVASTATIN 20 MG TAB PO SCH (10:04)
[2019-06-28] MEDS: MONTELUKAST SODIUM 10 MG TAB PO SCH (10:04)
[2019-06-28] MEDS: cefTRIAXone 1GM/50ML D5W 50 ML IV SCH (10:05)
--- NOTE | 2019-06-28 12:01 | NUR ---
Respiratory note: SCHEDULED MED NEB TX NOT GIVEN. PT NOT IN ROOM
[2019-06-28 13:00] VITALS: BP 95/63
[2019-06-28 16:46] VITALS: BP 113/77
[2019-06-28 17:30] LABS: Basophils # (auto) 0.1 uL; Eosinophils # (auto) 0.4 uL; Eosinophils % (auto) 3.9 % (0.0-7.0); Hemoglobin 13.7 g/dL (13.5-17.5); Lymphocytes # (auto) 1.6 uL; Lymphocytes % (auto) 16.7 % (10.0-50.0); Mean Corpuscular Hemoglobin 32.2 pg (28.0-32.0); Mean Corpuscular Hgb Conc. 34.2 g/dL (32.0-36.0); Mean Corpuscular Volume 93.9 fL (80.0-100.0); Monocytes # (auto) 0.8 uL; Monocytes % (auto) 7.7 % (0.0-12.0); Neutrophils # (auto) 6.9 uL; Neutrophils % (auto) 70.7 % (37.0-80.0); Platelet Count (auto) 236 10^3/uL (140-450); Red Blood Cells 4.26 10^6/uL (4.5-5.90); Red Cell Distribution Width 12.6 % (11.8-14.3); White Blood Cell 9.8 10^3/uL (4.4-10.8)
[2019-06-28 17:47] LABS: Albumin 2.9 g/dL (3.4-5.0); Calcium 8.5 mg/dL (8.5-10.1); Potassium 4.4 mmol/L (3.5-5.1)
[2019-06-28 17:50] LABS: BUN/Creatinine Ratio 20.4; Bilirubin, Total 0.3 mg/dL (0.2-1.0); Total Protein 6.1 g/dL (6.4-8.2)
--- NOTE | 2019-06-28 19:30 | NUR ---
ENDORSED CARE TO SLURRY PLANT OPERATOR RNDOMINIQUE
[2019-06-28 21:00] VITALS: BP 124/72
[2019-06-28] MEDS: INSULIN LANTUS (GLARGINE) 1 /0.01ml (100units/ml) SC SCH (21:43)
[2019-06-29] MEDS: HYDROcodone-ACET 10/325MG TAB PO PRN ×2 (00:07→15:49)
--- NOTE | 2019-06-29 00:55 | NUR ---
AGGITATED Patient became aggitated because he was bothered by the new admission in 275A bed patient and family and process of admission. Patient states that there was too much noise. Patient upset and using foul language towards staff and yelling. Nursing staff informed patient that 275A patient had just came to the floor and the family was only there at bedside for 15minutes prior to leaving. patient HR tachycardic in 120-160. phototypesetting equipment monitor informed patient status and is upset and going down to smoke. DEVONTE ODOM states they want to leave the floor Against Medical Advice (AMA) to go outside and smoke. Patient encouraged to stay on floor and not smoke, patient is completely upset. Dr Powers notified of patient's wishes. Patient advised of the risks and benefits of leaving AMA. Patient verbalized understanding and signed required AMA form. Addendum: 06/29/19 at 0121 by DOMINIQUE KELLY RN RN PATIENT CURRENT HR SR-95. PATIENT HAS NOT RETURNED BACK TO ROOM YET. AWAITING PATIENT ARRIVAL Addendum: 06/29/19 at 0133 by DOMINIQUE KELLY RN RN CHECKED PATIENT ROOM PATIENT STILL HAS HAS NOT RETURNED TO FLOOR. PAGED SECURITY TO CHECK PATIENT OUTSIDE.
--- NOTE | 2019-06-29 03:30 | NUR ---
DEVONTE ODOM states they want to leave the floor Against Medical Advice (AMA) to go outside and smoke. Patient encouraged to stay on floor and not smoke. Dr KRISHNAMURTHY notified of patient's wishes. Patient advised of the risks and benefits of leaving AMA. patient HR ST-130-150s. Patient went downstairs to go smoke. Patient verbalized understanding and signed required AMA form.
[2019-06-29 04:51] VITALS: BP 88/70
[2019-06-29] MEDS: InsuLIN REG 1unit/0.01ml Soln (100units/ml) SC SCH ×4 (05:22→21:22)
[2019-06-29] MEDS: ACCU-CHEK COMFORT CURVE STRIP VI SCH ×4 (05:22→21:22)
[2019-06-29 06:00] VITALS: BP 95/65
[2019-06-29] MEDS: IPRATROPIUM BROM 0.5 MG/2.5ML INH SOL NEB SCH ×4 (06:27→23:38)
--- NOTE | 2019-06-29 08:36 | NUR ---
OPENING SHIFT NOTE ASSUMED CARE OF PATIENT. PATIENT IS AWAKE AND ALERT. NO SOB OR SIGNS OF DISTRESS NOTED. INSTRUCTED ON POC AND TO CALL FOR ASSISTANCE PRN. BED IN LOWEST POSITION WITH SIDE RAILS UP X2. WILL CONTINUE TO MONITOR.
[2019-06-29] MEDS: cefTRIAXone 1GM/50ML D5W 50 ML IV SCH (08:43)
[2019-06-29 09:12] VITALS: BP 110/70
[2019-06-29] MEDS: ASPirin 81 mg TAB PO SCH (10:00)
[2019-06-29] MEDS: ATORVASTATIN 20 MG TAB PO SCH (10:00)
[2019-06-29] MEDS: TAMSULOSIN HYDROCHLORIDE 0.4 MG CAP PO SCH ×2 (10:00→21:21)
[2019-06-29] MEDS: MONTELUKAST SODIUM 10 MG TAB PO SCH (10:00)
[2019-06-29] MEDS: CLOPIDOGREL BISULFATE 75 MG TAB PO SCH (10:01)
[2019-06-29] MEDS: METOPROLOL TARTRATE 25 MG TAB PO SCH (10:02)
[2019-06-29] MEDS ORDERED: FUROSEMIDE 40 MG/4 ML VIAL IV ONE (12:00)
[2019-06-29 12:50] VITALS: BP 100/75
[2019-06-29] MEDS: methylPREDNISolone SOD SUCC 40 MG/ML VL IV SCH ×2 (15:48→21:21)
[2019-06-29 16:34] VITALS: BP 128/76
--- NOTE | 2019-06-29 19:30 | NUR ---
OPENING SHIFT NOTE RECEIVED REPORT FROM DAYSHIFT RN. PATIENT SITTING ON SIDE OF BED. NO S/S OF DISTRESS OR SOB. PATIENT DENIES PAIN AT THIS TIME. PATIENT A/OX4, AMBULATORY. UPDATED PATIENT ON POC, VERBALIZED UNDERSTANDING. BED LOCKED IN LOW POSITION, CALL LIGHT WITHIN REACH. WILL CONTINUE TO MONITOR PATIENT Q1HR AND PRN.
[2019-06-29] MEDS: INSULIN LANTUS (GLARGINE) 1 /0.01ml (100units/ml) SC SCH (21:22)
--- NOTE | 2019-06-29 21:34 | NUR ---
PAGED DR KRISHNAMURTHY REGARDING PATIENT COMPLAINT OF INGUINAL HERNIA. PATIENT NOTICED HERNIA HAD GOTTEN LARGER AFTER COUGHING. HERNIA APPEARS LARGE IN SIZE. NO ACUTE DISTRESS NOTED. AWAITING CALL BACK.
[2019-06-29 22:00] VITALS: BP 107/78
--- NOTE | 2019-06-29 22:45 | NUR ---
NEW ORDER RECEIVED NEW ORDER FROM DR KRISHNAMURTHY FROM SURGICAL CONSULT FOR PATIENT INGUINAL HERNIA. WILL PLACE CONSULT AND CONTINUE TO MONITOR PATIENT.
[2019-06-30 02:35] VITALS: BP 107/78
[2019-06-30 04:59] VITALS: BP 115/79
[2019-06-30] MEDS: ACCU-CHEK COMFORT CURVE STRIP VI SCH ×4 (06:17→21:31)
[2019-06-30] MEDS: methylPREDNISolone SOD SUCC 40 MG/ML VL IV SCH ×3 (06:17→21:31)
[2019-06-30] MEDS: InsuLIN REG 1unit/0.01ml Soln (100units/ml) SC SCH ×4 (06:18→21:32)
[2019-06-30] MEDS: IPRATROPIUM BROM 0.5 MG/2.5ML INH SOL NEB SCH ×3 (06:33→19:04)
--- NOTE | 2019-06-30 07:55 | NUR ---
OPENING SHIFT NOTE RECEIVED REPORT FROM PRINT WASHER RN. PATIENT IS AWAKE AND ALERT. NO SOB OR SIGNS OF DISTRESS NOTED. INSTRUCTED ON POC AND TO CALL FOR ASSISTANCE PRN. BED IN LOWEST POSITION WITH SIDE RAILS UP X2. WILL CONTINUE TO MONITOR.
[2019-06-30 09:00] VITALS: BP 151/98
[2019-06-30] MEDS: AZITHROMYCIN 500MG/ 250ML 250 ML IV SCH (10:19)
[2019-06-30] MEDS: FLUCONAZOLE 100 MG TAB PO SCH (10:29)
[2019-06-30] MEDS: TAMSULOSIN HYDROCHLORIDE 0.4 MG CAP PO SCH ×2 (10:29→21:31)
[2019-06-30] MEDS: MONTELUKAST SODIUM 10 MG TAB PO SCH (10:30)
[2019-06-30] MEDS: ATORVASTATIN 20 MG TAB PO SCH (10:30)
[2019-06-30] MEDS: CLOPIDOGREL BISULFATE 75 MG TAB PO SCH (10:30)
[2019-06-30] MEDS: ASPirin 81 mg TAB PO SCH (10:30)
[2019-06-30] MEDS: METOPROLOL TARTRATE 25 MG TAB PO SCH ×2 (10:32→13:04)
[2019-06-30 13:00] VITALS: BP 117/80
[2019-06-30 17:00] VITALS: BP 114/80
[2019-06-30] MEDS: Glucerna Carbsteady SHAKE Chocolate 8oz PO SCH (18:01)
[2019-06-30] MEDS ORDERED: ONDANSETRON HCL 4 MG/2 ML VIAL IV PRN (19:30)
--- NOTE | 2019-06-30 19:30 | NUR ---
OPENING SHIFT NOTE RECEIVED REPORT FROM DAYSHIFT RN. PATIENT LYING IN BED WATCHING TELEVISION. NO S/S OF DISTRESS OR SOB. PATIENT DENIES PAIN AT THIS TIME. PATIENT A/OX4, AMBULATORY. UPDATED PATIENT ON POC, VERBALIZED UNDERSTANDING. BED LOCKED IN LOW POSITION, CALL LIGHT WITHIN REACH. WILL CONTINUE TO MONITOR PATIENT Q1HR AND PRN.
[2019-06-30] MEDS: HYDROcodone-ACET 10/325MG TAB PO PRN (20:26)
[2019-06-30] MEDS: guaiFENesin-DM 100/10mg/5ml SYR PO PRN (20:26)
[2019-06-30] MEDS: INSULIN LANTUS (GLARGINE) 1 /0.01ml (100units/ml) SC SCH (21:31)
[2019-06-30 22:00] VITALS: BP 124/73
[2019-07-01] MEDS: IPRATROPIUM BROM 0.5 MG/2.5ML INH SOL NEB SCH ×4 (00:07→18:58)
--- NOTE | 2019-07-01 02:10 | NUR ---
RECEIVED REPORT FROM RN Received report from KARIS Meyers and assumed care of patient. Patient is sitting in bed on his phone with no s/s of distress and has no complaints. Patient is A&O X's 4. Educated patient to call for any assistance. Patient verbalized understanding. Will continue care.
[2019-07-01 05:00] VITALS: BP 130/74
[2019-07-01] MEDS: methylPREDNISolone SOD SUCC 40 MG/ML VL IV SCH ×3 (06:09→21:42)
[2019-07-01] MEDS: InsuLIN REG 1unit/0.01ml Soln (100units/ml) SC SCH ×4 (06:14→21:56)
[2019-07-01] MEDS: ACCU-CHEK COMFORT CURVE STRIP VI SCH ×4 (06:15→21:56)
[2019-07-01] MEDS: Glucerna Carbsteady SHAKE Chocolate 8oz PO SCH ×2 (08:25→17:01)
[2019-07-01] MEDS: ATORVASTATIN 20 MG TAB PO SCH (10:38)
[2019-07-01] MEDS: CLOPIDOGREL BISULFATE 75 MG TAB PO SCH (10:38)
[2019-07-01] MEDS: MONTELUKAST SODIUM 10 MG TAB PO SCH (10:39)
[2019-07-01] MEDS: AZITHROMYCIN 500MG/ 250ML 250 ML IV SCH (10:39)
[2019-07-01] MEDS: TAMSULOSIN HYDROCHLORIDE 0.4 MG CAP PO SCH ×2 (10:39→21:42)
[2019-07-01] MEDS: FLUCONAZOLE 100 MG TAB PO SCH (10:39)
[2019-07-01] MEDS: ASPirin 81 mg TAB PO SCH (10:39)
[2019-07-01] MEDS: METOPROLOL TARTRATE 25 MG TAB PO SCH (11:00)
[2019-07-01 13:00] VITALS: BP 129/86
[2019-07-01 17:00] VITALS: BP 112/61
[2019-07-01] MEDS: INSULIN LANTUS (GLARGINE) 1 /0.01ml (100units/ml) SC SCH (21:56)
--- NOTE | 2019-07-01 21:57 | NUR ---
patient off unit. Smoking consent form signed patient educated on hospital policy/smoking policy
[2019-07-01 22:00] VITALS: BP 121/85
--- NOTE | 2019-07-01 22:21 | NUR ---
patient back on unit. bed in low position call light within reach. patient denies sob or pain
[2019-07-02] MEDS: IPRATROPIUM BROM 0.5 MG/2.5ML INH SOL NEB SCH ×4 (00:54→19:02)
--- NOTE | 2019-07-02 04:40 | NUR ---
patient off unit to smoke. educated patient on hospital/smoking policy. smoking consent form signed
--- NOTE | 2019-07-02 05:20 | NUR ---
patient back on unit. patient reports no pain of Sob. bed in low position and call light within reach
[2019-07-02 05:35] VITALS: BP 115/84
[2019-07-02] MEDS: methylPREDNISolone SOD SUCC 40 MG/ML VL IV SCH ×3 (06:47→22:39)
[2019-07-02] MEDS: InsuLIN REG 1unit/0.01ml Soln (100units/ml) SC SCH ×5 (06:48→22:00)
[2019-07-02] MEDS: ACCU-CHEK COMFORT CURVE STRIP VI SCH ×5 (07:04→22:40)
--- NOTE | 2019-07-02 07:05 | NUR ---
Report given to jacquelin medrano
[2019-07-02] MEDS: Glucerna Carbsteady SHAKE Chocolate 8oz PO SCH ×2 (07:47→18:00)
[2019-07-02 09:22] VITALS: BP 102/73
[2019-07-02] MEDS: METOPROLOL TARTRATE 25 MG TAB PO SCH (10:00)
[2019-07-02] MEDS: ATORVASTATIN 20 MG TAB PO SCH (10:32)
[2019-07-02] MEDS: MONTELUKAST SODIUM 10 MG TAB PO SCH (10:32)
[2019-07-02] MEDS: FLUCONAZOLE 100 MG TAB PO SCH (10:32)
[2019-07-02] MEDS: ASPirin 81 mg TAB PO SCH (10:32)
[2019-07-02] MEDS: CLOPIDOGREL BISULFATE 75 MG TAB PO SCH (10:32)
[2019-07-02] MEDS: AZITHROMYCIN 500MG/ 250ML 250 ML IV SCH (10:33)
[2019-07-02] MEDS: TAMSULOSIN HYDROCHLORIDE 0.4 MG CAP PO SCH ×2 (10:33→22:39)
--- NOTE | 2019-07-02 12:11 | NUR ---
Nutrition Follow-Up Notes Wt.: 92 kg Pt. endorses excellent appetite and no reports of GI distress during visit. PO 75-100% x 3 days. Receiving Glucerna BID w/meals, which pt. is tolerating well. Food preferences updated during visit. No major changes since previous assessment. Pt. had multiple bottles of regular sodas at bedside; counseled on the importance of reducing sugary beverages to control blood glucose levels/DM management. Pt. verbalizes that he "highly dislikes fake sugar drinks and makes me sick when I drink them." Advised pt. to replace 1 sugary beverage with flavored water daily. States that he will try when he is discharged from facility. Declined [facility] handout on CCHO counting at this time. Est. Needs: Unchanged since previous assessment. Based on CBW 1850 kcal (30-35 kcal/kg) 62 g protein (1.0-1.2 g/kg) Labs: BUN 33H, Cr 1.62H, ALB 2.9L, POC glucose readings >180mg/dL Skin: Solomon 22, low risk, intact GI: BM x 1 today. Denies GI distress at this time. PES: 1) Altered nutrition related lab values r/t acute/chronic medical condition AEB hyperglycemia, elev. renal labs. (ongoing) Monitor: labs (POC gluc), skin integrity, PO intake/tolerance, GI function F/U: MR 3-5 days Rec. 1) Continue CCHO diet as ordered with Glucerna BID for ONS as ordered/tolerated.
[2019-07-02 14:09] VITALS: BP 148/100
[2019-07-02 17:26] VITALS: BP 143/92
[2019-07-02] MEDS: guaiFENesin-DM 100/10mg/5ml SYR PO PRN (18:37)
--- NOTE | 2019-07-02 20:00 | NUR ---
Patient not in the room at this time, noted AMA to smoke form in the chart. Will check patient later
--- NOTE | 2019-07-02 21:00 | NUR ---
Patient in the room now, significant other at bedside. Patient alert/oriented and not in distress. Instructed to call if he needs something, patient verbalized understanding, call light within reach, will continue to monitor
[2019-07-02] MEDS: INSULIN LANTUS (GLARGINE) 1 /0.01ml (100units/ml) SC SCH (22:00)
[2019-07-03 01:31] VITALS: BP 143/92
[2019-07-03 05:57] VITALS: BP 120/85
[2019-07-03] MEDS: methylPREDNISolone SOD SUCC 40 MG/ML VL IV SCH (06:10)
[2019-07-03] MEDS: InsuLIN REG 1unit/0.01ml Soln (100units/ml) SC SCH ×4 (06:11→22:22)
[2019-07-03] MEDS: ACCU-CHEK COMFORT CURVE STRIP VI SCH ×4 (06:11→22:22)
[2019-07-03] MEDS: IPRATROPIUM BROM 0.5 MG/2.5ML INH SOL NEB SCH ×4 (06:44→19:15)
--- NOTE | 2019-07-03 07:20 | NUR ---
RECEIVED PATIENT ALERT AND ORIENTED X4, NOT IN DISTRESS, DIMINISHED LS IN BILATERAL LUNG LOBES, RR=18, S SR R=70'S ON TELE MONITOR, DEEP BREATHING AND COUGHING ENCOURAGED, DENIED CHEST PAIN OR SOB AT THIS MOMENT, ABDOMEN SOFT WITH ACTIVE BS, GENERAL SKIN INTACT WARM TO TOUCH, RADIAL AND PEDAL PULSES PALPABLE, OUT OF THE BED TO BATHROOM ENCOURAGED, SITTING ON BED, BED IN LOW POSITION, RAILS UP X2, CALL LIGHT IN REACH, WILL CONTINUE MONITORING.
[2019-07-03] MEDS: Glucerna Carbsteady SHAKE Chocolate 8oz PO SCH ×2 (08:00→18:00)
--- NOTE | 2019-07-03 08:00 | NUR ---
WENT OUT OF THE UNIT FOR SMOKING, AMA FOR SMOKING ON CHART, WILL CONTINUE MONITORING.
--- NOTE | 2019-07-03 08:50 | NUR ---
DID NOT COME BACK TO THE ROOM FROM SMOKING, SECURITY NOTIFIED, WAITING PATIENT TO COME BACK TO THE ROOM.
--- NOTE | 2019-07-03 10:13 | NUR ---
CAME BACK TO THE ROOM, RESTING ON BED, NOT IN DISTRESS, DENIED PAIN, WILL CONTINUE MONITORING.
[2019-07-03] MEDS: ASPirin 81 mg TAB PO SCH (10:22)
[2019-07-03] MEDS: AZITHROMYCIN 500MG/ 250ML 250 ML IV SCH (10:22)
[2019-07-03] MEDS: FLUCONAZOLE 100 MG TAB PO SCH (10:23)
[2019-07-03] MEDS: CLOPIDOGREL BISULFATE 75 MG TAB PO SCH (10:23)
[2019-07-03] MEDS: ATORVASTATIN 20 MG TAB PO SCH (10:23)
[2019-07-03] MEDS: MONTELUKAST SODIUM 10 MG TAB PO SCH (10:23)
[2019-07-03] MEDS: METOPROLOL TARTRATE 25 MG TAB PO SCH (10:23)
[2019-07-03] MEDS: TAMSULOSIN HYDROCHLORIDE 0.4 MG CAP PO SCH ×2 (10:23→21:32)
[2019-07-03 12:00] VITALS: BP 137/89
--- NOTE | 2019-07-03 12:22 | NUR ---
AV=[id number], [id number], 15 UNITS OF REGULAR INSULIN SQ ADMINISTERED ORDERED, DR. KRISHNAMURTHY NOTIFIED AND WAITING FOR CALL BACK.
[2019-07-03] MEDS ORDERED: InsuLIN REG 1unit/0.01ml Soln (100units/ml) IV ONE (14:00)
--- NOTE | 2019-07-03 15:48 | NUR ---
PENDING D/C HOME TODAY, PATIENT REFUSING TO D/C DO TO NO PLACE OR HOME TO TO, [facility] WAS CALLED, DR. KRISHNAMURTHY WAS CALLED AND LEFT MESSAGE, WAITING FOR CALL BACK.
[2019-07-03 17:00] VITALS: BP 110/73
--- NOTE | 2019-07-03 18:37 | NUR ---
HOLD D/C ORDERED, VT=581 AT 1700, OUT OF UNIT FOR SMOKING X4, RESTING ON BED AT THIS MOMENT, DENIED PAIN, NOT IN DISTRESS, TALKING ON THE PHONE AT THIS MOMENT.
--- NOTE | 2019-07-03 19:13 | NUR ---
RESTING ON BED, REPORT WAS GIVEN TO THE BINGO FLOATER RN.
--- NOTE | 2019-07-03 19:14 | NUR ---
Respiratory note: at bedside for med neb tx. pt not in room at this time.
--- NOTE | 2019-07-03 19:45 | NUR ---
Opening Shift Note Assumed care of patient, awake and alert. No S/S of distress/SOB or pain. Instructed on POC and to call for assist PRN, patient verbalized understanding, call light within reach, will continue to monitor for changes Q1hr and PRN.
[2019-07-03] MEDS: guaiFENesin-DM 100/10mg/5ml SYR PO PRN (21:30)
[2019-07-03] MEDS: INSULIN LANTUS (GLARGINE) 1 /0.01ml (100units/ml) SC SCH (22:22)
[2019-07-03] MEDS: HYDROcodone-ACET 10/325MG TAB PO PRN (22:23)
[2019-07-03 22:38] VITALS: BP 134/86
[2019-07-04] MEDS: IPRATROPIUM BROM 0.5 MG/2.5ML INH SOL NEB SCH ×4 (00:09→19:28)
--- NOTE | 2019-07-04 00:09 | NUR ---
Respiratory note: PAGED TO BEDSIDE PT TRIPODING ON BED, PT STATES HIS CHEST HURTS KARIS BORGES NOTIFIED
--- NOTE | 2019-07-04 00:22 | NUR ---
Respiratory note: BS ARE FINE COURSE IN BILATERAL BASES. POX 94-96% ON RA. AFTER LONG CONVERSATION WITH PATIENT AND RN KATERINA AT BEDSIDE, PATIENT ATTEMPTING TO EXPLAIN MANY THINGS AND GETTING AGITATED AT THE SAME TIME ADDING TO HIS DIFFICULTY WITH BREATHING. PT EXPLAINS HE NEEDS TO GO SMOKE A CIGARETTE TO FEEL BETTER. I EXPLAINED TO THE PATIENT IF CANNOT BREATHE RIGHT NOW, SMOKING A CIGARETTE MIGHT NOT BE A GOOD IDEA. PT GOT MORE UPSET. PT THEN EXPLAINS THAT HE JUST WANTS A REAL DOCTOR TO COME EXPLAIN TO HIM WHAT IS GOING ON BECAUSE HE FEELS LIKE HE CANNOT BREATHE.
--- NOTE | 2019-07-04 00:52 | NUR ---
IV insertion IV access obtained, via clean sterile technique by inserting 20 gauge catheter at LFA after [1] attempt(s) by KARIS Moise. IV secured properly. No trauma to site. Patient tolerated well. NOTE: []
[2019-07-04] MEDS: InsuLIN REG 1unit/0.01ml Soln (100units/ml) SC SCH ×3 (06:39→17:48)
[2019-07-04] MEDS: ACCU-CHEK COMFORT CURVE STRIP VI SCH ×3 (06:39→17:37)
--- NOTE | 2019-07-04 07:01 | NUR ---
Veronica Vasques reported to me that patient was found in [facility] and fell and was Coded Assist. Checked on patient and he was in a wheelchair already in the room. Alert/oriented, O2 continued at 2 Lpm/NC, V/S taken BP 146/89, HR 74, O2 Sat 89%. Blood Sugar is 79, offered 2 orange juices Noted skin tear on left elbow, patient complained of neck pain. Will order XR at this time
--- NOTE | 2019-07-04 07:15 | NUR ---
Placed patient on the bed, siderails up x3, bed alarm on at this time.
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
--- NOTE | 2019-07-04 07:20 | NUR ---
Changed linens at this time, patient on the chair at this time. Instructed to sit still and verbalized understanding
--- NOTE | 2019-07-04 07:30 | NUR ---
Instructed patient to go back to bed so he can eat his breakfast but he refused at this time. Patient also refused primary RN to take a picture of skin tear on his left elbow. Patient stated "Can I eat my breakfast? Am I allowed to eat my breakfast?" Primary RN instructed patient that she will just endorse it to dayshift KARIS Moore and patient verbalized understanding. Patient now eating his breakfast on a bedside chair. Endorsed care to KARIS Moore
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
[2019-07-04] MEDS: Glucerna Carbsteady SHAKE Chocolate 8oz PO SCH (08:00)
[2019-07-04 09:00] VITALS: BP 118/77
[2019-07-04] MEDS: ATORVASTATIN 20 MG TAB PO SCH (09:29)
[2019-07-04] MEDS: CLOPIDOGREL BISULFATE 75 MG TAB PO SCH (09:29)
[2019-07-04] MEDS: ASPirin 81 mg TAB PO SCH (09:29)
[2019-07-04] MEDS: METOPROLOL TARTRATE 25 MG TAB PO SCH (09:29)
[2019-07-04] MEDS: MONTELUKAST SODIUM 10 MG TAB PO SCH (09:29)
[2019-07-04] MEDS: AZITHROMYCIN 500MG/ 250ML 250 ML IV SCH (09:29)
[2019-07-04] MEDS: TAMSULOSIN HYDROCHLORIDE 0.4 MG CAP PO SCH (09:30)
[2019-07-04] MEDS: FLUCONAZOLE 100 MG TAB PO SCH (09:30)
--- NOTE | 2019-07-04 11:18 | NUR ---
Low Blood Sugar Low BS of 55 noted. Pt is a/ox4 and asymptomatic at this time except for mild sleepiness. Pt drank 2 cartons of [place] juice as well as a small butterscotch. Reassessed blood sugar 15 minutes later, blood sugar is now 70. Provided pt with another butterscotch. Pt is asymptomatic. Will continue to monitor and notify
[2019-07-04 13:00] VITALS: BP 120/81
--- NOTE | 2019-07-04 16:03 | NUR ---
Contacted Dr Powers Regarding Pending D/C orders and Transfer to [facility] Awaiting a response back.
--- NOTE | 2019-07-04 16:37 | NUR ---
Discharge planning per consult, patient has orders to dc to [facility]. Referral faxed, placed a follow up call, spoke with Leona and was advised that they will accept this patient to room 45-B under . Transportation has been arranged with [facility] and they will be here to pick the patient up at 7:15. Nurse Mariela was advised of the dc plan. Addendum: 07/04/19 at 1640 by CIERRA CAPPS Amended: Links added.
[2019-07-04 17:33] VITALS: BP 129/88
--- NOTE | 2019-07-04 17:45 | NUR ---
PT AWARE OF D/C PLAN AND PLAN TO GO TO [facility] PT VERBALIZED UNDERSTANDING.
--- NOTE | 2019-07-04 17:59 | NUR ---
D/C WOUND PHOTOS TAKEN FOR REFERENCE
--- NOTE | 2019-07-04 18:03 | NUR ---
IV REMOVED IV REMOVED FROM PT L FA. CATHETER REMOVED FULLY INTACT. SITE IS ASYMPTOMATIC. PT TOLERATED REMOVAL WELL. GAUZE AND COBAN APPLIED. PRESSURE APPLIED FOR 3 MINUTES.
--- NOTE | 2019-07-04 19:13 | NUR ---
Report Given to Roxanna Nolan at [facility] All questions answered and RN was given full report
--- NOTE | 2019-07-04 19:45 | NUR ---
PT D/C OFF UNIT PT TRANSFERRED ROM UNIT TO [facility]. PT IS A/OX4 WITH ALL BELONGINGS AND EDUCATION PROVIDED. NO SOB NOTED. IV REMOVED AND INFORMATION PROVIDED TO [facility].
== END 2019-07-04 19:44 | DRG 189 ==
LOC: ER 19:17 → TELE-WESTW 19:18
PROVIDERS: ADMIT Internal Medicine Cardiovascular Disease; ATTEND Internal Medicine Cardiovascular Disease
DX: J96.00 Acute respiratory failure, unspecified whether with hypoxia or hypercapnia (principal); J18.9 Pneumonia, unspecified organism; J45.902 Unspecified asthma with status asthmaticus; I13.0 Hypertensive heart and chronic kidney disease with heart failure and stage 1 through stage 4 chronic kidney disease, or unspecified chronic kidney disease; J44.1 Chronic obstructive pulmonary disease with (acute) exacerbation; J44.0 Chronic obstructive pulmonary disease with (acute) lower respiratory infection; J31.0 Chronic rhinitis; I50.9 Heart failure, unspecified; N40.0 Benign prostatic hyperplasia without lower urinary tract symptoms; I25.10 Atherosclerotic heart disease of native coronary artery without angina pectoris; I49.5 Sick sinus syndrome; N18.3 Chronic kidney disease, stage 3 (moderate); K40.90 Unilateral inguinal hernia, without obstruction or gangrene, not specified as recurrent; E11.22 Type 2 diabetes mellitus with diabetic chronic kidney disease; F17.210 Nicotine dependence, cigarettes, uncomplicated; E11.51 Type 2 diabetes mellitus with diabetic peripheral angiopathy without gangrene; E78.5 Hyperlipidemia, unspecified; Z87.01 Personal history of pneumonia (recurrent); Z95.0 Presence of cardiac pacemaker; Z95.5 Presence of coronary angioplasty implant and graft; Z99.81 Dependence on supplemental oxygen; Z82.49 Family history of ischemic heart disease and other diseases of the circulatory system; Z81.1 Family history of alcohol abuse and dependence; Z82.3 Family history of stroke; Z80.0 Family history of malignant neoplasm of digestive organs; Z79.899 Other long term (current) drug therapy
CPT/HCPCS: 36415; 71045; 73080; 80053; 80307; 82962; 83880; 84484; 85025; 85379; 85610; 85730; 87081; 93005; 94640; 96361; 96374; 96375; G0378; J0696; J1815; J2405

== ENCOUNTER → 2019-09-02 | Outpatient (CLI) | payer MEDICARE, OTHER ==
[2019-09-02 16:31] LABS: Basophils # (auto) 0.1 uL; Eosinophils # (auto) 0.2 uL; Eosinophils % (auto) 3.4 % (0.0-7.0); Hematocrit 42.2 % (41.0-53.0); Hemoglobin 14.3 g/dL (13.5-17.5); Lymphocytes # (auto) 1.2 uL; Lymphocytes % (auto) 18.1 % (10.0-50.0); Mean Corpuscular Hemoglobin 32.5 pg (28.0-32.0); Mean Corpuscular Hgb Conc. 33.8 g/dL (32.0-36.0); Mean Corpuscular Volume 96.1 fL (80.0-100.0); Monocytes # (auto) 0.6 uL; Monocytes % (auto) 8.9 % (0.0-12.0); Neutrophils # (auto) 4.5 uL; Neutrophils % (auto) 68.6 % (37.0-80.0); Nucleated Red Blood Cells % 0.1 %; Platelet Count (auto) 297 10^3/uL (140-450); Red Cell Distribution Width 13.6 % (11.8-14.3); White Blood Cell 6.6 10^3/uL (4.4-10.8)
[2019-09-02 16:51] LABS: Albumin 3.4 g/dL (3.4-5.0); Calcium 8.3 mg/dL (8.5-10.1); Potassium 4.3 mmol/L (3.5-5.1)
[2019-09-02 16:57] LABS: BUN/Creatinine Ratio 13.4; Bilirubin, Total 0.5 mg/dL (0.2-1.0); Total Protein 6.8 g/dL (6.4-8.2)
== END | disposition home or self-care (01) ==
LOC: Rad HDHVI 11:50
PROVIDERS: ATTEND Internal Medicine Cardiovascular Disease
DX: I70.0 Atherosclerosis of aorta (principal); D64.9 Anemia, unspecified; I10 Essential (primary) hypertension; R05 Cough
CPT/HCPCS: 36415; 71046; 80053; 85025

== ENCOUNTER → 2019-12-17 | Outpatient (CLI) | payer MEDICARE, OTHER | END | disposition home or self-care (01) | LOC: Rad HDHVI 13:13 | PROVIDERS: ATTEND Internal Medicine Cardiovascular Disease | DX: I10 Essential (primary) hypertension (principal); J44.9 Chronic obstructive pulmonary disease, unspecified; R06.02 Shortness of breath | CPT/HCPCS: 93306; 93925 ==

== ENCOUNTER → 2019-12-19 | Outpatient (CLI) | payer MEDICARE, OTHER ==
[~2019-12-19] VITALS: Ht 170.2 cm; Wt 61.2 kg
== END | disposition home or self-care (01) ==
LOC: Rad HDHVI 14:04
PROVIDERS: ATTEND Internal Medicine Cardiovascular Disease
DX: I25.10 Atherosclerotic heart disease of native coronary artery without angina pectoris (principal); E11.9 Type 2 diabetes mellitus without complications; I10 Essential (primary) hypertension; I25.2 Old myocardial infarction; E78.00 Pure hypercholesterolemia, unspecified; F17.210 Nicotine dependence, cigarettes, uncomplicated; Z95.0 Presence of cardiac pacemaker; Z82.49 Family history of ischemic heart disease and other diseases of the circulatory system
CPT/HCPCS: 78452; 93017; 96374; A9500

== ENCOUNTER → 2020-06-10 | Outpatient (CLI) | payer MEDICARE, OTHER ==
[~2020-06-10] MED LIST changes: -ASPI-404 PO; +ASPI-543 PO; +ENAL2.5T11 PO; -ENAL2.5T2 PO
[2020-06-10 16:00] LABS: Calcium 8.6 mg/dL (8.5-10.1); Potassium 4.3 mmol/L (3.5-5.1)
[2020-06-10 16:02] LABS: BUN/Creatinine Ratio 14.2
== END | disposition home or self-care (01) ==
LOC: LAB 13:59
PROVIDERS: ATTEND Internal Medicine Cardiovascular Disease
DX: R94.4 Abnormal results of kidney function studies (principal)
CPT/HCPCS: 36415; 80048

== ENCOUNTER → 2020-06-12 | Outpatient (CLI) | payer MEDICARE, OTHER ==
[~2020-06-12] MED LIST changes: +IOHEXOL 350 MG/ML 100ML IJ ONE; +SODIUM CHLORIDE 0.9% 250 ML IV ONE
[2020-06-12 11:30] VITALS: BP 105/72
--- NOTE | 2020-06-12 11:30 | NUR ---
CLINIC PT ARRIVED TO THE [facility] FOR CTA LUNG R/O CA. A/OX4, AMBULATORY, BREATHING IS EVEN AND UNLABORED. Addendum: 06/12/20 at 1314 by MOHAMUD PRASAD RN RN [place] PT CREAT 1.55 ON 06/10/20 IV HYDRATION ORDERED BY
--- NOTE | 2020-06-12 11:40 | NUR ---
IV insertion IV access obtained, via clean sterile technique by inserting 20 gauge catheter at LAC after 1 attempt(s). IV secured properly. No trauma to site. Patient tolerated procedure well. NOTE INSERTED BY THANIA DYSON
--- NOTE | 2020-06-12 12:57 | NUR ---
IV removal IV DC'd with sterile technique, catheter fully intact. Pressure dressing applied to site. Patient tolerated procedure well. Discharged with aftercare instructions per MD. NOTE: REMOVED BY MOHAMUD DYSON
[2020-06-12 12:58] VITALS: BP 112/82
--- NOTE | 2020-06-12 12:58 | NUR ---
Discharge Instructions See e-MAR for any mediations given with this visit. Patient education given on disease process. Patient verbalized understanding. Previous labs reviewed. Patient discharged in stable condition with after care instructions and follow up appointment. PT TOLD TO INCREASE FLUIDS FOR THE NEXT 48 HOURS. PT VERBALIZED UNDERSTANDING. NOTE NS 0.9% IV [id number] ADMIN BY CAPRI DYSON
== END | disposition home or self-care (01) ==
LOC: Rad HDHVI 11:03
PROVIDERS: ATTEND Internal Medicine Cardiovascular Disease
DX: R94.4 Abnormal results of kidney function studies (principal); J43.9 Emphysema, unspecified
CPT/HCPCS: 71275; 96360; G0463; J7050; Q9967

== ENCOUNTER → 2021-01-11 | Outpatient (CLI) | payer MEDICARE, OTHER ==
[~2021-01-11] VITALS: Ht 172.7 cm; Wt 67.6 kg
[~2021-01-11] MED LIST changes: +ADENOSINE 57 MG in GIVE UN-DILUTED 0 ML IV ONE; +ADENOSINE 90 MG/30 ML INJ IV ONE; -IOHEXOL 350 MG/ML 100ML IJ ONE; -SODIUM CHLORIDE 0.9% 250 ML IV ONE
== END | disposition home or self-care (01) ==
LOC: Rad HDHVI 13:42
PROVIDERS: ATTEND Internal Medicine Cardiovascular Disease
DX: I11.0 Hypertensive heart disease with heart failure (principal); I50.23 Acute on chronic systolic (congestive) heart failure; I25.10 Atherosclerotic heart disease of native coronary artery without angina pectoris; E11.9 Type 2 diabetes mellitus without complications; E78.5 Hyperlipidemia, unspecified; J44.9 Chronic obstructive pulmonary disease, unspecified; F17.210 Nicotine dependence, cigarettes, uncomplicated; R07.9 Chest pain, unspecified; Z95.0 Presence of cardiac pacemaker; Z82.49 Family history of ischemic heart disease and other diseases of the circulatory system
CPT/HCPCS: 78452; 93017; 96374; A9500; J0153

== ENCOUNTER → 2022-01-13 | Outpatient (CLI) | payer MEDICARE, OTHER ==
[~2022-01-13] MED LIST changes: -ADENOSINE 57 MG in GIVE UN-DILUTED 0 ML IV ONE; -ADENOSINE 90 MG/30 ML INJ IV ONE
== END | disposition home or self-care (01) ==
LOC: Rad HDHVI 16:00
PROVIDERS: ATTEND Internal Medicine Cardiovascular Disease
DX: I71.9 Aortic aneurysm of unspecified site, without rupture (principal)
CPT/HCPCS: 93306

== ENCOUNTER → 2022-02-02 | Outpatient (CLI) | payer MEDICARE, OTHER ==
[2022-02-02 13:17] LABS: Basophils # (auto) 0.1 10 ^3/uL (0-0.2); Basophils % (auto) 0.7 % (0.0-2.0); Eosinophils # (auto) 0.3 10 ^3/uL (0-0.8); Eosinophils % (auto) 3.2 % (0.0-7.0); Hematocrit 42.4 % (41.0-53.0); Hemoglobin 14.3 g/dL (13.5-17.5); Lymphocytes # (auto) 1.4 10 ^3/uL (0.4-5.4); Lymphocytes % (auto) 17.1 % (10.0-50.0); Mean Corpuscular Hemoglobin 31.9 pg (28.0-32.0); Mean Corpuscular Hgb Conc. 33.9 g/dL (32.0-36.0); Mean Corpuscular Volume 94.1 fL (80.0-100.0); Monocytes # (auto) 0.7 10 ^3/uL (0-1.3); Monocytes % (auto) 8.4 % (0.0-12.0); Neutrophils # (auto) 5.7 10 ^3/uL (1.6-8.6); Neutrophils % (auto) 70.6 % (37.0-80.0); Red Cell Distribution Width 12.7 % (11.8-14.3)
[2022-02-02 13:25] LABS: Urine Blood Negative /uL (Negative); Urine Specific Gravity 1.019 (1.001-1.035)
[2022-02-02 13:44] LABS: Albumin 3.1 g/dL (3.4-5.0); Calcium 8.8 mg/dL (8.5-10.1); Potassium 4.2 mmol/L (3.5-5.1)
[2022-02-02 13:51] LABS: BUN/Creatinine Ratio 21.2; Bilirubin, Total 0.4 mg/dL (0.2-1.0); Total Protein 6.6 g/dL (6.4-8.2)
[2022-02-02 13:57] LABS: Free T4 (Free Thyroxine) 1.29 ng/dL (0.89-1.76)
[2022-02-02 13:58] LABS: Prostate Specific Antigen 1.78 ng/mL (0.0-4.0)
== END | disposition home or self-care (01) ==
LOC: LAB 11:07
PROVIDERS: ATTEND Internal Medicine Cardiovascular Disease
DX: D51.3 Other dietary vitamin B12 deficiency anemia (principal); D64.9 Anemia, unspecified; E11.9 Type 2 diabetes mellitus without complications; E55.9 Vitamin D deficiency, unspecified; I10 Essential (primary) hypertension; R00.2 Palpitations; R53.1 Weakness; R30.0 Dysuria; C61 Malignant neoplasm of prostate
CPT/HCPCS: 36415; 80053; 80061; 81003; 82306; 82607; 83036; 84153; 84403; 84439; 84443; 85025

== ENCOUNTER → 2022-02-15 | Outpatient (CLI) | payer MEDICARE, OTHER ==
[~2022-02-15] VITALS: Ht 170.2 cm; Wt 64.0 kg
[~2022-02-15] MED LIST changes: +ADENOSINE 54 MG in GIVE UN-DILUTED 0 ML IV ONE; +ADENOSINE 90 MG/30 ML INJ IV ONE
== END | disposition home or self-care (01) ==
LOC: Rad HDHVI 13:23
PROVIDERS: ATTEND Internal Medicine Cardiovascular Disease
DX: R06.02 Shortness of breath (principal); I10 Essential (primary) hypertension; E11.9 Type 2 diabetes mellitus without complications; I21.9 Acute myocardial infarction, unspecified
CPT/HCPCS: 78452; 93005; 94640; 96374; 96375; A9500; J0153

== ENCOUNTER → 2022-04-29 | Outpatient (CLI) | payer MEDICARE, OTHER ==
[~2022-04-29] MED LIST changes: -ADENOSINE 54 MG in GIVE UN-DILUTED 0 ML IV ONE; -ADENOSINE 90 MG/30 ML INJ IV ONE; +ALBUAER3 IN; +ASPI1TAB19 PO; +ATOR20TA50 PO; +FLUT250M2 INH; +FURO1TAB33 PO; +GLIP5TAB12 PO; +HYDR-4798 PO; +HYDR12.56 PO; +INSU1INJ13 SC; +METO25TA93 PO; +MONT10TA23 PO; +NAPR220C PO; +NAPR375T27 PO; +OME20T PO; +OMEP-263 PO; +POTA10TA32 PO; +TAMS0.4C36 PO; +UMEC1AER IN
[2022-04-29 10:52] VITALS: BP 111/72
[2022-04-29 11:14] VITALS: BP 116/74
[2022-04-29 16:26] LABS: BUN/Creatinine Ratio 16.9
[2022-04-29 16:29] LABS: Basophils # (auto) 0.1 10 ^3/uL (0-0.2); Basophils % (auto) 1.1 % (0.0-2.0); Eosinophils # (auto) 0.4 10 ^3/uL (0-0.8); Hematocrit 47.7 % (41.0-53.0); Hemoglobin 15.5 g/dL (13.5-17.5); Mean Corpuscular Hemoglobin 30.6 pg (28.0-32.0); Mean Corpuscular Hgb Conc. 32.4 g/dL (32.0-36.0); Mean Corpuscular Volume 94.4 fL (80.0-100.0); Monocytes # (auto) 0.6 10 ^3/uL (0-1.3); Monocytes % (auto) 7.4 % (0.0-12.0); Neutrophils # (auto) 4.6 10 ^3/uL (1.6-8.6); Neutrophils % (auto) 60.5 % (37.0-80.0); Nucleated Red Blood Cells % 0.1 %; Red Blood Cells 5.06 10^6/uL (4.5-5.90); Red Cell Distribution Width 13.1 % (11.8-14.3); White Blood Cell 7.6 10^3/uL (4.4-10.8)
[2022-04-29 16:44] LABS: INR 1.01 (0.9-1.15); Partial Thromboplastin Time 24.8 sec (24.6-33.4)
== END | disposition home or self-care (01) ==
LOC: Rad HDHVI 10:56
PROVIDERS: ATTEND Internal Medicine Cardiovascular Disease
DX: Z01.818 Encounter for other preprocedural examination (principal); R94.31 Abnormal electrocardiogram [ECG] [EKG]; R94.39 Abnormal result of other cardiovascular function study; R00.2 Palpitations; R06.02 Shortness of breath
CPT/HCPCS: 36415; 80048; 85025; 85610; 85730; 93005; G0463

== ENCOUNTER 2022-05-03 10:39 | Inpatient (IN) | payer MEDICARE, OTHER ==
[~2022-05-03] VITALS: Ht 170.2 cm; Wt 61.1 kg
[2022-05-03] VITALS (12 sets, daily range): BP systolic 119–168; BP diastolic 69–103
[~2022-05-03 10:39] MED LIST changes: -ASPI1TAB19 PO; -ENAL2.5T11 PO; -METO-6 PO; -OMEP-263 PO
[2022-05-03] MEDS ORDERED: IODIXANOL 320MG/ML 100ML BTL IV ONE (14:18)
[2022-05-03] MEDS ORDERED: LIDOCAINE 2%HCL (LOCAL ANESTH.) INJ 10ml MDV ONE (14:18)
[2022-05-03] MEDS ORDERED: SODIUM CHL 0.9% 50 ML ONE (14:34)
[2022-05-03] MEDS ORDERED: fentaNYL CITRATE 100 MCG/2 ML VL ONE (14:34)
[2022-05-03] MEDS ORDERED: MIDAZOLAM HCL 2MG/2ML 2ml VIAL (1mg/ml) ONE (14:34)
[2022-05-03] MEDS ORDERED: ANGIOMAX 250 MG VIAL IV ONE (14:34)
[2022-05-03] MEDS ORDERED: EPTIFIBATIDE INJ (2MG/ML) 10ML VIAL IV ONE (15:39)
[2022-05-03] MEDS ORDERED: CLOPIDOGREL 300 MG TAB ONE (15:40)
[2022-05-03] MEDS ORDERED: NITROGLYCERIN 0.4 MG SL TAB SL PRN (16:00)
[2022-05-03] MEDS ORDERED: MORPHINE SULFATE INJ 2 MG/ml SYRG IV PRN (16:00)
[2022-05-03] MEDS ORDERED: OMEP-263 PO (17:13)
[2022-05-03] MEDS ORDERED: ASPI1TAB19 PO (17:13)
[2022-05-03] MEDS ORDERED: CLOP75TA28 PO (17:13)
[2022-05-03] MEDS ORDERED: ALBUTEROL SULF HFA 90MCG INH 200DOSE IN PRN (17:15)
[2022-05-03] MEDS ORDERED: NAPROXEN 500 MG TAB PO PRN (17:15)
[2022-05-03] MEDS ORDERED: HYDROcodone-ACET 10/325MG TAB PO PRN (17:15)
[2022-05-03] MEDS ORDERED: ATORVASTATIN 20 MG TAB PO SCH ×2 (18:00→22:00)
[2022-05-03] MEDS ORDERED: ALBUTEROL SULF 2.5 MG/0.5ML(0.5%) NEB SOLN NEB PRN ×2 (18:30→19:00)
[2022-05-03] MEDS ORDERED: DEXTROSE (50%) 50ML SYRG IV PRN (19:00)
[2022-05-03] MEDS: InsuLIN REG 1unit/0.01ml Soln (100units/ml) SC SCH (21:19)
[2022-05-03] MEDS: TAMSULOSIN HYDROCHLORIDE 0.4 MG CAP PO SCH (21:20)
[2022-05-03] MEDS: ACCU-CHEK COMFORT CURVE STRIP VI SCH (21:20)
[2022-05-03] MEDS ORDERED: INSULIN LANTUS (GLARGINE) 1 /0.01ml (100units/ml) SC SCH (22:00)
[2022-05-03] MEDS: Fluticasone-Salmeterol (Advair Diskus 250/50) IN SCH (22:00)
[2022-05-04 05:00] VITALS: BP 103/34
[2022-05-04] MEDS: InsuLIN REG 1unit/0.01ml Soln (100units/ml) SC SCH ×2 (05:57→11:30)
[2022-05-04] MEDS: ACCU-CHEK COMFORT CURVE STRIP VI SCH ×2 (06:11→11:30)
[2022-05-04] MEDS: PANTOPRAZOLE 40 MG TAB PO SCH ×2 (06:11→09:03)
[2022-05-04 06:45] LABS: BUN/Creatinine Ratio 26.2; Calcium 8.2 mg/dL (8.5-10.1); Potassium 3.5 mmol/L (3.5-5.1)
[2022-05-04] MEDS ORDERED: INSULIN LANTUS (GLARGINE) 1 /0.01ml (100units/ml) SC SCH (07:00)
[2022-05-04] MEDS: Fluticasone-Salmeterol (Advair Diskus 250/50) IN SCH (08:59)
[2022-05-04] MEDS: TAMSULOSIN HYDROCHLORIDE 0.4 MG CAP PO SCH (08:59)
[2022-05-04 09:00] VITALS: BP 127/86
[2022-05-04] MEDS ORDERED: MONTELUKAST SODIUM 10 MG TAB PO SCH (10:00)
[2022-05-04] MEDS ORDERED: CLOPIDOGREL BISULFATE 75 MG TAB PO SCH (10:00)
[2022-05-04] MEDS ORDERED: METOPROLOL SUCCINATE XL 50 MG TAB PO SCH (10:00)
[2022-05-04] MEDS ORDERED: HCTZ 25 MG TAB PO SCH (10:00)
[2022-05-04] MEDS ORDERED: ASPirin-EC 81 mg tab PO SCH (10:00)
[2022-05-04] MEDS ORDERED: FUROSEMIDE 20 MG TAB PO SCH (10:00)
[2022-05-04 13:00] VITALS: BP 149/81
[2022-05-04 13:17] VITALS: BP 127/86
[2022-05-05] MEDS ORDERED: POTASSIUM CHL 10 Meq TABLET PO SCH (10:00)
== END 2022-05-04 14:31 | disposition home or self-care (01) | DRG 247 ==
LOC: CATH 10:39 → TELE 15:57 → TELE-WESTW 17:45
PROVIDERS: ADMIT Internal Medicine Cardiovascular Disease; ATTEND Internal Medicine Cardiovascular Disease
PROC: 027135Z Dilation of Coronary Artery, Two Arteries with Two Drug-eluting Intraluminal Devices, Percutaneous Approach (ICD-10-PCS; 2022-05-03)
PROC: 4A033BC Measurement of Arterial Pressure, Coronary, Percutaneous Approach (ICD-10-PCS; 2022-05-03)
PROC: 4A023N7 Measurement of Cardiac Sampling and Pressure, Left Heart, Percutaneous Approach (ICD-10-PCS; 2022-05-03)
PROC: B211YZZ Fluoroscopy of Multiple Coronary Arteries using Other Contrast (ICD-10-PCS; 2022-05-03)
PROC: B215YZZ Fluoroscopy of Left Heart using Other Contrast (ICD-10-PCS; 2022-05-03)
PROC: B41G1ZZ Fluoroscopy of Left Lower Extremity Arteries using Low Osmolar Contrast (ICD-10-PCS; principal; 2022-05-04)
PROC: B41F1ZZ Fluoroscopy of Right Lower Extremity Arteries using Low Osmolar Contrast (ICD-10-PCS; 2022-05-04)
DX: I25.119 Atherosclerotic heart disease of native coronary artery with unspecified angina pectoris (principal); R64 Cachexia; Z20.822 Contact with and (suspected) exposure to COVID-19; E78.5 Hyperlipidemia, unspecified; I11.0 Hypertensive heart disease with heart failure; I50.9 Heart failure, unspecified; J43.9 Emphysema, unspecified; I70.202 Unspecified atherosclerosis of native arteries of extremities, left leg; N40.0 Benign prostatic hyperplasia without lower urinary tract symptoms; Z82.49 Family history of ischemic heart disease and other diseases of the circulatory system; Z72.0 Tobacco use; Z68.20 Body mass index [BMI] 20.0-20.9, adult
CPT/HCPCS: 36415; 75710; 80048; 82962; 92928; 92929; 93458; 93571; 99152; 99153; C1874; G0378; J1815; J2001; J2250; Q9967

== ENCOUNTER 2024-01-18 09:19 | Inpatient (IN) | payer MEDICARE, OTHER ==
[2024-01-17 14:55] LABS: Basophils # (auto) 0 10 ^3/uL (0-0.2); Basophils % (auto) 0.4 % (0.0-2.0); Eosinophils # (auto) 0.3 10 ^3/uL (0-0.8); Hematocrit 38.8 % (41.0-53.0); Hemoglobin 12.5 g/dL (13.5-17.5); Lymphocytes # (auto) 1.8 10 ^3/uL (0.4-5.4); Mean Corpuscular Hemoglobin 30.5 pg (28.0-32.0); Mean Corpuscular Hgb Conc. 32.2 g/dL (32.0-36.0); Mean Corpuscular Volume 94.6 fL (80.0-100.0); Monocytes # (auto) 0.9 10 ^3/uL (0-1.3); Monocytes % (auto) 6.7 % (0.0-12.0); Neutrophils # (auto) 10.1 10 ^3/uL (1.6-8.6); Neutrophils % (auto) 76.9 % (37.0-80.0); Nucleated Red Blood Cells % 0.1 %; Red Blood Cells 4.11 10^6/uL (4.5-5.90); Red Cell Distribution Width 14.1 % (11.8-14.3); White Blood Cell 13.1 10^3/uL (4.4-10.8)
[2024-01-17 15:15] LABS: INR 1.05 (0.9-1.15); Partial Thromboplastin Time 22.2 SEC (24.5-34.5)
[2024-01-17 16:08] LABS: Chloride 106 mmol/L (98-107); Potassium 3.9 mmol/L (3.5-5.1); Sodium 142 mmol/L (136-145)
[2024-01-17 16:09] LABS: Anion Gap 6 (5-15); Carbon Dioxide 30 mmol/L (20-30)
[2024-01-17 16:14] LABS: BUN/Creatinine Ratio 19.1 (10.0-20.0); Blood Urea Nitrogen 36 mg/dL (9-23); Glucose 52 mg/dL (74-106)
[~2024-01-18] VITALS: Ht 172.7 cm; Wt 59.4 kg
[2024-01-18] VITALS (14 sets, daily range): BP systolic 125–166; BP diastolic 82–109; PULSE 77–119; RESP 13–24; TEMP 97.8–98; O2SAT 94–100
[~2024-01-18 09:19] MED LIST changes: -ASPI-543 PO; +ASPI1TAB19 PO; -Atorvastatin Calcium PO; +DICL1GEL59 EX; +FINA5TAB4 PO; -GLIP5TAB12 PO; +GLIP5TAB21 PO; -HYDR12.56 PO; +IVAB1.7T PO; +METO100T18 PO; -METO25TA93 PO; +NAPR-957 PO; -NAPR220C PO; -NAPR375T27 PO; -OME20T PO; +OMEP-448 PO; +POTA-228 PO; -POTA10TA32 PO
[2024-01-18] MEDS: LIDOCAINE 2%HCL (LOCAL ANESTH.) INJ 20ML MDV ONE (10:42)
[2024-01-18] MEDS: IODIXANOL 320MG/ML 100ML BTL IV ONE (10:42)
[2024-01-18] MEDS: ANGIOMAX 250 MG VIAL IV ONE (10:48)
[2024-01-18] MEDS: MIDAZOLAM HCL 2MG/2ML 2ml VIAL (1mg/ml) ONE (10:49)
[2024-01-18] MEDS: SODIUM CHL 0.9% 50 ML ONE (10:49)
[2024-01-18] MEDS: fentaNYL CITRATE 100 MCG/2 ML VL ONE (10:49)
[2024-01-18] MEDS: ATROPINE SULF 1 MG/10ml SYR ONE (11:19)
[2024-01-18] MEDS: CLOPIDOGREL BISULFATE 75 MG TAB ONE (11:59)
[2024-01-18] MEDS: NITROGLYCERIN 0.4MG/DOSE SPRAY 4.9GM ONE (12:39)
[2024-01-18] MEDS: HYDROcodone-ACET 5/325MG TAB ONE (13:48)
[2024-01-18] MEDS: HYDROcodone-ACET 5/325MG TAB PO ONE (14:18)
[2024-01-18] MEDS ORDERED: DEXTROSE (50%) 50ML SYRG IV PRN (16:30)
[2024-01-18] MEDS ORDERED: MORPHINE SULFATE INJ 2 MG/ml SYRG IV PRN (16:30)
[2024-01-18] MEDS ORDERED: NITROGLYCERIN 0.4 MG SL TAB SL PRN (16:30)
[2024-01-18] MEDS ORDERED: [UNRECOGNIZED DRUG - OTHER] PO PRN (16:30)
[2024-01-18] MEDS: ACCU-CHEK COMFORT CURVE STRIP VI SCH (17:45)
[2024-01-18] MEDS: InsuLIN REG 1unit/0.01ml Soln (100units/ml) SC SCH (17:45)
[2024-01-18] MEDS: ATORVASTATIN 20 MG TAB PO SCH (19:17)
[2024-01-18] MEDS: HYDROcodone-ACET 10/325MG TAB PO PRN (19:18)
[2024-01-18] MEDS: IVABRADINE 5 MG TAB PO SCH (22:00)
[2024-01-18] MEDS: FLUTICASONE SALMETEROL MT SCH (22:00)
[2024-01-19 01:00] VITALS: BP 132/91; PULSE 112; RESP 20; TEMP 97.9; O2SAT 90
[2024-01-19 05:00] VITALS: BP 156/93; PULSE 120; RESP 22; TEMP 98.2; O2SAT 94
[2024-01-19] MEDS: glipiZIDE 5 MG TAB PO SCH (06:58)
[2024-01-19] MEDS: CLOPIDOGREL BISULFATE 75 MG TAB PO SCH (06:58)
[2024-01-19] MEDS: FUROSEMIDE 20 MG TAB PO SCH (06:58)
[2024-01-19] MEDS: PANTOPRAZOLE 40 MG TAB PO SCH (06:58)
[2024-01-19 08:00] VITALS: PULSE 91
[2024-01-19 08:10] VITALS: PULSE 66; RESP 22; O2SAT 93
[2024-01-19 08:51] VITALS: BP 145/92; PULSE 66; RESP 22; TEMP 97.9; O2SAT 93
[2024-01-19] MEDS: TAMSULOSIN HYDROCHLORIDE 0.4 MG CAP PO SCH (09:43)
[2024-01-19] MEDS: MONTELUKAST SODIUM 10 MG TAB PO SCH (09:43)
[2024-01-19] MEDS: FINASTERIDE 5 MG TAB PO SCH (09:43)
[2024-01-19] MEDS: ASPirin-EC 81 mg tab PO SCH (09:44)
[2024-01-19] MEDS ORDERED: [UNRECOGNIZED DRUG - OTHER] IN SCH (10:00)
[2024-01-19] MEDS ORDERED: UMECLIDINIUM VILANTEROL IN SCH (10:00)
[2024-01-19 14:37] VITALS: BP 145/92; PULSE 66; RESP 22; TEMP 97.9; O2SAT 93
[2024-01-20] MEDS ORDERED: POTASSIUM CHL 10 Meq TABLET PO SCH (10:00)
== END 2024-01-19 17:10 | disposition home or self-care (01) | DRG 324 ==
LOC: CATH 09:19 → TELE 16:29 → TELE-WESTW 18:44
PROVIDERS: ADMIT Internal Medicine Cardiovascular Disease; ATTEND Internal Medicine Cardiovascular Disease
PROC: 02F03ZZ Fragmentation in Coronary Artery, One Artery, Percutaneous Approach (ICD-10-PCS; principal; 2024-01-18)
PROC: 027034Z Dilation of Coronary Artery, One Artery with Drug-eluting Intraluminal Device, Percutaneous Approach (ICD-10-PCS; 2024-01-18)
PROC: 02C03ZZ Extirpation of Matter from Coronary Artery, One Artery, Percutaneous Approach (ICD-10-PCS; 2024-01-18)
PROC: 4A033BC Measurement of Arterial Pressure, Coronary, Percutaneous Approach (ICD-10-PCS; 2024-01-18)
PROC: B211YZZ Fluoroscopy of Multiple Coronary Arteries using Other Contrast (ICD-10-PCS; 2024-01-18)
DX: I25.5 Ischemic cardiomyopathy (principal)
CPT/HCPCS: 0715T; 92933; 93458; 93571; 36415; 80048; 82962; 85025; 85610; 85730; 93005; 99152; C1874; G0378; G0463; J1815; J2250; Q9967

== ENCOUNTER → 2024-01-23 | Outpatient (CLI) | payer MEDICARE, OTHER ==
[2024-01-23 16:07] LABS: Basophils # (auto) 0.1 10 ^3/uL (0-0.2); Basophils % (auto) 0.8 % (0.0-2.0); Eosinophils # (auto) 0.3 10 ^3/uL (0-0.8); Hematocrit 36.3 % (41.0-53.0); Hemoglobin 11.9 g/dL (13.5-17.5); Lymphocytes % (auto) 11.2 % (10.0-50.0); Mean Corpuscular Hemoglobin 31.2 pg (28.0-32.0); Mean Corpuscular Hgb Conc. 32.8 g/dL (32.0-36.0); Mean Corpuscular Volume 95.3 fL (80.0-100.0); Monocytes # (auto) 0.7 10 ^3/uL (0-1.3); Monocytes % (auto) 7.4 % (0.0-12.0); Neutrophils # (auto) 7.1 10 ^3/uL (1.6-8.6); Neutrophils % (auto) 77.6 % (37.0-80.0); Red Blood Cells 3.81 10^6/uL (4.5-5.90); Red Cell Distribution Width 14.4 % (11.8-14.3); White Blood Cell 9.2 10^3/uL (4.4-10.8)
[2024-01-23 16:23] LABS: Alanine Aminotransferase 42 U/L (7-40); Alkaline Phosphatase 122 U/L (46-116); Anion Gap 5 (5-15); Aspartate Aminotransferase 33 U/L (13-40); BUN/Creatinine Ratio 21.2 (10.0-20.0); Blood Urea Nitrogen 39 mg/dL (9-23); Calcium 9.1 mg/dL (8.5-10.1); Carbon Dioxide 30 mmol/L (20-30); Chloride 108 mmol/L (98-107); Glucose 142 mg/dL (74-106); LDL Cholesterol 88 mg/dL (< 100); Potassium 4.7 mmol/L (3.5-5.1); Sodium 143 mmol/L (136-145); Triglycerides 61 mg/dL (< 150)
[2024-01-23 16:24] LABS: Bilirubin, Direct 0.1 mg/dL (<0.3); Bilirubin, Total 0.3 mg/dL (0.2-1.0); Cholesterol 160 mg/dL (< 200); HDL Cholesterol 59 mg/dL (40-59); Total Protein 6.2 g/dL (5.7-8.2)
[2024-01-23 16:31] LABS: Prostate Specific Antigen 0.73 ng/mL (0.0-4.0)
[2024-01-23 16:36] LABS: Free T4 (Free Thyroxine) 1.1 ng/dL (0.89-1.76)
== END | disposition home or self-care (01) ==
LOC: LAB 15:42
PROVIDERS: ATTEND Internal Medicine Cardiovascular Disease
DX: E11.9 Type 2 diabetes mellitus without complications (principal); I10 Essential (primary) hypertension; R00.2 Palpitations; R53.1 Weakness; R30.0 Dysuria; D51.3 Other dietary vitamin B12 deficiency anemia; D64.9 Anemia, unspecified; E55.9 Vitamin D deficiency, unspecified; N40.0 Benign prostatic hyperplasia without lower urinary tract symptoms
CPT/HCPCS: 36415; 80053; 80061; 80076; 83036; 84153; 84403; 84439; 84443; 85025

== ENCOUNTER → 2024-02-07 | Outpatient (CLI) | payer MEDICARE, OTHER | END | disposition home or self-care (01) | LOC: Rad HDHVI 16:10 | PROVIDERS: ATTEND Internal Medicine Cardiovascular Disease | DX: I11.9 Hypertensive heart disease without heart failure (principal); I48.91 Unspecified atrial fibrillation; R06.02 Shortness of breath; Z95.0 Presence of cardiac pacemaker | CPT/HCPCS: 93306 ==

== ENCOUNTER → 2024-06-10 | Outpatient (CLI) | payer MEDICARE, MEDICAID ==
[~2024-06-10] MED LIST changes: +IOHEXOL 350 MG/ML 100ML IJ ONE; +READI-CAT 2 (BARIUM SULF)(VANILLA SMOOTHIE) 450ML ONE; -TAMS0.4C36 PO; +TAMS0.4C39 PO
[2024-06-10 10:30] VITALS: BP 124/77; PULSE 95; RESP 20; O2SAT 95
[2024-06-10] MEDS: SODIUM CHLORIDE 0.9% 500 ML IV ONE (10:35)
[2024-06-10 12:45] VITALS: BP 133/87; PULSE 87; RESP 20; O2SAT 95
== END | disposition home or self-care (01) ==
LOC: Rad HDHVI 10:19
PROVIDERS: ATTEND Internal Medicine Cardiovascular Disease
DX: R63.4 Abnormal weight loss (principal); I11.0 Hypertensive heart disease with heart failure; I50.9 Heart failure, unspecified; I48.91 Unspecified atrial fibrillation; E11.9 Type 2 diabetes mellitus without complications; Z79.899 Other long term (current) drug therapy
CPT/HCPCS: 71260; 74177; 96360; 96361; G0463; J7040; Q9967

== ENCOUNTER → 2024-10-25 | Outpatient (CLI) | payer MEDICARE, MEDICAID ==
[~2024-10-25] MED LIST changes: -READI-CAT 2 (BARIUM SULF)(VANILLA SMOOTHIE) 450ML ONE
[2024-10-25 10:30] VITALS: BP 127/79; PULSE 90; RESP 20; O2SAT 92
[2024-10-25] MEDS: SODIUM CHLORIDE 0.9% 500 ML IV ONE (11:10)
--- NOTE | 2024-10-25 12:42 | DVH ---
XY CHEST TWO VIEWS ROUTINE CLINICAL HISTORY: SOB COMPARISON: XY CHEST TWO VIEWS ROUTINE on DOS: 01/03/24 TECHNIQUE: Frontal and lateral view of the chest was obtained FINDINGS: Lines and Tubes: left sided pacemaker Lungs: No focal consolidation. Pleura: No effusion. No pneumothorax. Cardiomediastinal contours: Unremarkable Bones: No acute osseous abnormality. IMPRESSION: No acute cardiopulmonary disease.
[2024-10-25 13:37] VITALS: BP 147/92; PULSE 89; RESP 20; O2SAT 93
--- NOTE | 2024-10-25 13:38 | DVH ---
Exam: CT CT CHEST/AB/PL W CON- IV ONLY History: ANEURYSM/ DISECTION Comparison Study: CT scan of the chest, abdomen and pelvis performed on 06/10/2024. Technique: Multidetector CT of the chest, abdomen and pelvis was performed from lower neck to pubic s ymphysis. Intravenous contrast was administered during this examination. Coronal and sagittal multipl renetta reformats were performed by the technologist on a separate workstation. Radiation Dose Information: CT Dose: CTDI volume is 5.91 mGy. Dose-length product is 417.1 mGy*cm Findings: Support lines and tubes: AICD/pacemaker is noted. Lower neck: Normal thyroid. Lungs: Moderate centrilobular emphysema. Left upper lobe atelectasis. No suspicious pulmonary nodule. Trachea and central airways: Patent. Pleura: No pneumothorax or pleural effusion. Heart/Vascular Structures: The heart is normal in size. Coronary artery calcifications. No pericardia l effusion. Coronary artery calcifications in the thoracic aorta. Thoracic aortic aneurysm measuring 4.1 cm at the level of the main pulmonary artery. There is noncalcified plaque in the descending tho racic aorta with ectasia similar to prior study. Lymph Nodes: No adenopathy. Liver: The liver is normal in size. No focal lesions. Normal hepatic vascular enhancement. Gallbladder and Biliary Tree: Unremarkable. No biliary ductal dilatation. Spleen: Unremarkable Pancreas: The pancreas is normal in appearance without focal lesions or abnormal enhancement. Adrenal Glands: Unremarkable. Kidneys: Kidneys demonstrate normal symmetric enhancement without focal lesions, calculi or hydroneph rosis. Urinary bladder: There is an ill-defined lobular mass along the posterior wall of the urinary bladder measuring approximately 7.0 cm in transverse dimension by 2.6 cm in thickness. There is a right post erolateral urinary bladder diverticulum measuring 2.4 cm containing stones. Bowel: The stomach is grossly normal in appearance. The small bowel is normal in caliber. There is di ffuse colonic diverticulosis without acute diverticulitis. The appendix is not visualized; however, no secondary findings of acute appendicitis identified. Intraperitoneal cavity: No pneumoperitoneum. No ascites. Lymphadenopathy: No mesenteric, retroperitoneal or periportal lymphadenopathy. Abdominal Wall and Mesentery: Unremarkable. Vasculature: Calcified and noncalcified atheromatous disease of the abdominal aorta. There is infrare nal abdominal aortic aneurysm measuring 3.2 cm. There is 1.4 cm intramural thrombus or hematoma in t he aneurysm sac. Mild narrowing of the celiac artery origin due to noncalcified plaque. Mild narrowin g of the superior mesenteric artery due to calcified and noncalcified plaque. Inferior mesenteric ar leslie is patent. Bilateral renal artery origins demonstrate atherosclerotic disease, moderate on the l eft and mild on the right. Pelvic Organs: Prostate is enlarged measuring 4.6 cm in transverse dimension. Seminal vesicles are u nremarkable. Musculoskeletal: No aggressive focal bony lesions, acute fractures or dislocation. Multilevel thoraci c and lumbar spondylosis. IMPRESSION: 1. Atherosclerotic disease in the thoracic aorta with 4.1 cm thoracic aortic aneurysm at the level of the main pulmonary artery. Ectasia of the descending thoracic aorta. 2. Emphysema. 3. Infrarenal abdominal aortic aneurysm measuring 3.2 cm. Intramural thrombus versus hematoma in the aneurysm sac. 4. Sigmoid colon diverticulosis without acute diverticulitis. 5. Lobular ill-defined wall thickening of the urinary bladder wall highly suspicious for an underlyin g malignancy. Correlation with cystoscopy recommended. 6. Prostatomegaly. All CT scans at this medical facility are performed using dose modulation techniques as appropriate t o a performed exam including the following: Automated exposure control was utilized; adjustment of th e MA and/or KV according to patient size; and use of iterative reconstruction technique.
== END | disposition home or self-care (01) ==
LOC: Rad HDHVI 10:33
PROVIDERS: ATTEND Internal Medicine Cardiovascular Disease
DX: J43.2 Centrilobular emphysema (principal); N40.0 Benign prostatic hyperplasia without lower urinary tract symptoms; K57.30 Diverticulosis of large intestine without perforation or abscess without bleeding; I71.43 Infrarenal abdominal aortic aneurysm, without rupture; I70.0 Atherosclerosis of aorta; I25.10 Atherosclerotic heart disease of native coronary artery without angina pectoris; J98.11 Atelectasis; N32.3 Diverticulum of bladder; I71.20 Thoracic aortic aneurysm, without rupture, unspecified; I77.1 Stricture of artery; N42.82 Prostatosis syndrome; I70.298 Other atherosclerosis of native arteries of extremities, other extremity; M47.895 Other spondylosis, thoracolumbar region
CPT/HCPCS: 71046; 71260; 74177; G0463; J7040; Q9967; 96360; 96361

== ENCOUNTER → 2025-01-22 | Outpatient (CLI) | payer MEDICARE, MEDICAID ==
[~2025-01-22] VITALS: Ht 170.2 cm; Wt 49.9 kg
[~2025-01-22] MED LIST changes: +ADENOSINE 42 MG in GIVE UN-DILUTED 0 ML IV ONE; +ADENOSINE 90 MG/30 ML INJ IV ONE; -IOHEXOL 350 MG/ML 100ML IJ ONE
== END | disposition home or self-care (01) ==
LOC: Rad HDHVI 13:00
PROVIDERS: ATTEND Internal Medicine Cardiovascular Disease
DX: I49.1 Atrial premature depolarization (principal); I48.91 Unspecified atrial fibrillation; R94.31 Abnormal electrocardiogram [ECG] [EKG]; I25.10 Atherosclerotic heart disease of native coronary artery without angina pectoris; R06.00 Dyspnea, unspecified; R07.9 Chest pain, unspecified; I11.0 Hypertensive heart disease with heart failure; I50.23 Acute on chronic systolic (congestive) heart failure; E11.21 Type 2 diabetes mellitus with diabetic nephropathy; I71.20 Thoracic aortic aneurysm, without rupture, unspecified; I25.2 Old myocardial infarction; E78.00 Pure hypercholesterolemia, unspecified; Z95.820 Peripheral vascular angioplasty status with implants and grafts; Z95.0 Presence of cardiac pacemaker; Z79.82 Long term (current) use of aspirin
CPT/HCPCS: 78452; 93017; A9500; J0153; 93005; 96374; 96375

== ENCOUNTER → 2025-01-28 | Outpatient (CLI) | payer MEDICARE, MEDICAID ==
[~2025-01-28] MED LIST changes: -ADENOSINE 42 MG in GIVE UN-DILUTED 0 ML IV ONE; -ADENOSINE 90 MG/30 ML INJ IV ONE
== END | disposition home or self-care (01) ==
LOC: Rad HDHVI 14:29
PROVIDERS: ATTEND Internal Medicine Cardiovascular Disease
DX: I34.0 Nonrheumatic mitral (valve) insufficiency (principal); I34.81 Nonrheumatic mitral (valve) annulus calcification; I77.819 Aortic ectasia, unspecified site
CPT/HCPCS: 93306